=== PATIENT | female | born 1950 | race Caucasian/White ===

== ENCOUNTER → 2017-09-25 07:02 | Outpatient (CLI) | payer BC ==
[~2017-09-25] VITALS: Ht 157.5 cm; Wt 109.1 kg
--- NOTE | ~2017-09-25 | HEMODYNAMI ---
PATIENT:ASPPHIRE LARA MEDICAL RECORD: [id number] : 48 LOCATION:[facility] ADMISSION DATE: 09/25/17 Generatedon:09/25/20179:44 Patient name: SAPPHIRE LARA Patient #: [id number] SSN: : 1950 Date of study: 09/25/2017 Page: Of Hemodynamic Procedure Report Patient Data Patient Demographics Procedure consent was obtained First Name: SAPPHIRE Gender: Female Last Name: MARCO : 1950 [facility] Initial: J Age: 66 year(s) Patient #: [id number] Race: Unknown Additional ID: [id number] Contact details [address]: [address] [place] [address] State: [place] City: [place] Zip code: [address] Past Medical History Allergies Allergen Reaction Date Comments Reported Other allergy 09/25/2017 metoclopramide Admission Admission Data Admission Date: 09/25/2017 Admission Time: 7:02 Lab Results Lab Result Date: 09/25/2017 Lab Result Time: 7:15 Biochemistry Name Units Result Min Max BUN mg/dl 17 --(---*)-- 7 18 Creatinine mg/dl 0.9 --(-*--)-- 0.6 1.3 CBC Name Units Result Min Max Hematocrit % 42.2 --(*---)-- 42 54 Hemoglobin g/dl 14.2 --(*---)-- 13.5 17.5 Procedure Procedure Types Cath Procedure Diagnostic Procedure LHC LHC w/Coronaries Sedation Charges Moderate Sedation up to 45 minutes PCI Procedure Coronary Atherectomy Atherectomy w/Stent Coronary Initial Procedure Description Procedure Date Procedure Date: 09/25/2017 Procedure Start Time: 8:44 Procedure End Time: 9:43 Procedure Staff Name Function Marcell Watkins MD Performing Physician Tariq Cohen RN Nurse Mary Owens RT Scrub Edilberto Peterson RT Monitor Procedure Data Cath Procedure Fluoroscopy Diagnostic fluoroscopy Total fluoroscopy Time: time: 16.6 min 16.6 min Diagnostic fluoroscopy Total fluoroscopy dose: dose: 1577 mGy 1577 mGy Contrast Material Contrast Material Type Amount (ml) Isovue 300 239 Entry Location Entry Primary Successful Side Size Upsize Upsize Entry Closure Succes sful Closure Location (Fr) 1 (Fr) 2 (Fr) Remarks Device Remarks Femoral Right 5 Fr 6 Fr 7 Fr Exoseal artery Short Short Estimated blood loss: 10 ml Diagnostic catheters Device Type Used For End Catheter Placement MULTIPACK Pigtail 5 Fr Procedure catheter MULTIPACK JL 4.0 5Fr Procedure catheter MULTIPACK 3DRC 5Fr Procedure catheter Procedure Complications No complications Procedure Medications Medication Administration Route Dosage Oxygen NC 2 l/min Lidocaine 2% added to field 20 Heparin Flush Bag added to field 2 bags (1000units/500ml NS) 0.9% NaCl I.V. 100 ml/hr Fentanyl I.V. 50 mcg Versed I.V. 1 mg Fentanyl I.V. 50 mcg Versed I.V. 1 mg Fentanyl I.V. 50 mcg Fentanyl I.V. 50 mcg Heparin Bolus I.V. 5000 units Versed I.V. 1 mg Heparin Bolus I.V. 3000 units Versed I.V. 1 mg Fentanyl I.V. 50 mcg Fentanyl I.V. 50 mcg Versed I.V. 1 mg Versed I.V. 1 mg Hemodynamics Rest HGB: 14.2 (g/dl) Heart Rate: 64 (bpm) Snapshots Pre Cath Intra NCS Post Cath Vital Signs Time Heart Resp SPO2 etCO2 NIBP (mmHg) Rhythm Pain Sedation Rate (ipm) (%) (mmHg) Status Level (bpm) 8:20:42 91 17 99 0 143/75(81) NSR 0 (11) 10(A) , No pain 8:25:34 91 17 99 0 131/80(114) NSR 0 (11) 10(A) , No pain 8:33:19 89 17 98 0 131/91(109) NSR 0 (11) 10(A) , No pain 8:38:10 84 17 100 31.6 146/83(120) NSR 0 (11) 10(A) , No pain 8:43:01 84 18 99 24.1 126/83(103) NSR 0 (11) 10(A) , No pain 8:47:50 86 17 98 13.5 140/77(123) NSR 0 (11) 10(A) , No pain 8:52:43 86 17 99 15.8 126/82(108) NSR 0 (11) 10(A) , No pain 8:57:34 94 18 99 37.6 137/64(102) NSR 0 (11) 8(A) , No pain 9:02:29 84 16 100 22.6 115/69(92) NSR 0 (11) 9(A) , No pain 9:07:15 87 16 100 0 119/71(92) NSR 0 (11) 9(A) , No pain 9:12:02 89 16 100 31.6 136/83(111) NSR 0 (11) 9(A) , No pain 9:16:53 86 17 100 27.8 127/72(110) NSR 0 (11) 9(A) , No pain 9:21:42 84 16 100 34.6 139/89(109) NSR 0 (11) 9(A) , No pain 9:26:35 97 16 100 37.6 133/84(105) NSR 0 (11) 9(A) , No pain 9:31:21 84 17 100 36.1 110/67(99) NSR 0 (11) 9(A) , No pain 9:37:03 82 16 100 35.4 125/77(97) NSR 0 (11) 9(A) , No pain 9:40:02 81 17 99 36.1 108/74(88) NSR 0 (11) 9(A) , No pain Medications Time Medication Route Dose Verified Delivered Reason Notes Effectiveness by by 8:15:31 Oxygen NC 2 Marcell Faith used for l/min June Watkins MD procedure 8:15:38 Lidocaine 2% added 20ml Marcell Faith for local to vial June Watkins MD anesthetic field 8:15:44 Heparin Flush added 2 Marcell Faith used for Bag to bags June Watkins MD procedure (1000units/500ml field NS) 8:16:05 0.9% NaCl I.V. 100 Marcell Potter Per physician ml/hr June Cohen RN 8:42:09 Fentanyl I.V. 50 Marcell Potter for sedation mcg June Cohen RN 8:42:17 Versed I.V. 1 mg Marcell Tariq for sedation June Cohen RN 8:45:42 Fentanyl I.V. 50 Marcell Tariq for sedation [facility] June Cohen RN 8:45:45 Versed I.V. 1 mg Marcell Tariq for sedation June Cohen RN 8:48:31 Fentanyl I.V. 50 Marcell Tariq for sedation mcg June Cohen RN 8:52:10 Fentanyl I.V. 50 Marcell Tariq for sedation mcg June Cohen RN 8:52:24 Heparin Bolus I.V. 5000 Marcell Tariq for units June Cohen RN anticoagulation 8:59:05 Versed I.V. 1 mg Marcell Tariq for sedation June Cohen RN 9:06:15 Heparin Bolus I.V. 3000 Marcell Tariq for units June Cohen RN anticoagulation 9:12:10 Versed I.V. 1 mg Marcell Tariq for sedation June Cohen RN 9:12:15 Fentanyl I.V. 50 Marcell Tariq for sedation mcg June Cohen RN 9:18:47 Fentanyl I.V. 50 Marcell Tariq for sedation [facility] June Cohen RN 9:26:08 Versed I.V. 1 mg Marcell Tariq for sedation June Cohen RN 9:34:51 Versed I.V. 1 mg Marcell Tariq for sedation June Cohen quality review specialist Log Time Note 8:00:49 Mary Counts RT(R) sent for patient. Start room use. 8:03:50 Time tracking: Regular hours (M-F 7:00 - 5:00) 8:03:55 Plan of Care:Hemodynamics will remain stable., Cardiac rhythm will remain stable., Comfort level will be maintained., Respiratory function will remain adequate., Patient/ family verbilizes understanding of procedure., Procedure tolerated without complication., Recovers from procedure without complications.. 8:05:12 H&P Date Dictated: 09/25/2017 New H&P dictated by physician.. 8:07:15 Lab Result : BUN 17 mg/dl 8:07:15 Lab Result : Hemoglobin 14.2 g/dl 8:07:15 Lab Result : Creatinine 0.9 mg/dl 8:07:15 Lab Result : Hematocrit 42.2 % 8:07:18 Lab results completed and on chart. 8:08:45 Patient received from Pre/Post Procedure Room to CCL 1 Alert and oriented. Tansferred to table in Supine position. 8:08:46 Warm blankets applied, and vince hugger turned on for patient comfort. 8:08:47 Correct patient and procedure confirmed by team. 8:08:49 Signed procedure consent form obtained from patient. 8:08:50 ECG and BP/O2 sat monitors applied to patient. 8:08:51 Pre-procedure instructions explained to patient. 8:08:52 Pre-op teaching completed and patient verbalized understanding. 8:08:54 Family in waiting room. 8:08:56 Patient NPO since Midnight. 8:09:19 Patient allergic to Other allergymetoclopramide 8:13:47 Vital chart was started 8:15:13 Previous problem with sedation/anesthesia? No ? 8:15:14 Snore? Yes 8:15:15 Sleep apnea? No 8:15:17 Deviated septum? No 8:15:18 Opens mouth fully? Yes 8:15:19 Sticks out tongue? Yes 8:15:29 Airway obstruction? Yes POSSIBLE COPD 8:15:31 Oxygen 2 l/min NC was administered by Marcell Watkins MD; used for procedure; 8:15:38 Lidocaine 2% 20ml vial added to field was administered by Marcell Watkins MD; for local anesthetic; 8:15:44 Heparin Flush Bag (1000units/500ml NS) 2 bags added to field was administered by Marcell Watkins MD; used for procedure; 8:15:58 Dentures? Yes IN TIGHT 8:16:04 Patient diabetic? No. 8:16:05 0.9% NaCl 100 ml/hr I.V. was administered by Tariq Cohen RN; Per physician; 8:16:07 Patient not . Patient is over age 55. 8:16:11 Is patient on blood thinner?Yes 8:16:17 PRE LOADED 8:30:57 Pre procedure: right dorsailis pedis pulse 1+ Palpable, but thready & weak; easily obliterated 8:31:00 Pre procedure: left dorsailis pedis pulse 2+ Normal; easily identifiable; not easily obliterated 8:31:02 Patient pain scale 0/10 ?. 8:31:39 IV patent on arrival in right forearm with 0.9% NaCl at [facility]. 8:32:09 Bilateral groins area was prepped with chlora-prep and draped in sterile fashion 8:32:10 Alarms reviewed by R. N. 8:32:10 Sharps counted by scrub and verified by R.N. 8:32:12 Use device set Femoral Dx 8:32:13 ACIST Syringe (80256) opened to sterile field. 8:32:14 Bag Decanter (2002S) opened to sterile field. 8:32:14 Medline Cath Pack ([id number]) opened to sterile field. 8:32:21 ACIST Hand Control (95296) opened to sterile field. 8:32:21 ACIST Manifold (52912) opened to sterile field. 8:32:22 Tegaderm 4 x 4 (1626W) opened to sterile field. 8:32:24 SHEATH Prelude 5Fr 0.035 (TZS-1O-49-035) opened to sterile field. 8:32:26 DIAGNOSTIC WIRE .035 260cm J wire (984331) opened to sterile field. 8:32:27 DIAGNOSTIC Multipack 5Fr catheter set (UC1383) opened to sterile field. 8:32:54 Baseline sample Acquired. 8:33:00 Rhythm: sinus rhythm 8:33:01 Full Disclosure recording started 8:33:09 Physician paged 8:33:20 Zero performed for pressure channel P1 8:41:34 Physician arrived 8:41:34 --------ALL STOP TIME OUT------ 8:41:34 Final Timeout: patient, procedure, and site verified with staff and physician. All members of the team are in agreement. 8:41:38 Bilateral groins site verified by team. 8:41:51 Physical assessment completed. ASA score P 2 - A patient with mild systemic disease as per Marcell Watkins MD. 8:41:55 Sedation plan: IV Moderate Sedation Medication:Versed, Fentanyl 8:42:09 Fentanyl 50 mcg I.V. was administered by Tariq Cohen RN; for sedation; 8:42:17 Versed 1 mg I.V. was administered by Tariq Cohen RN; for sedation; 8:44:15 Procedure started. 8:44:18 Local anesthetic to right femoral artery with Lidocaine 2% by Marcell Watkins MD.INITIAL ACCESS ONLY 8:44:26 A 5 Fr sheath was inserted into the Right Femoral artery 8:44:39 A MULTIPACK Pigtail 5 Fr catheter was advanced over the wire and used for Procedure. 8:44:54 LV gram done using POON 8:44:57 Injector settings: Ml/sec: 10, Volume: 20, 8:45:33 EF : 50 % 8:45:42 Fentanyl 50 mcg I.V. was administered by Tariq Cohen RN; for sedation; 8:45:45 Versed 1 mg I.V. was administered by Tariq Cohen RN; for sedation; 8:45:52 Abdominal angiogram w/ runoff was performed. 8:46:06 Left leg runoff performed. 8:46:15 Right leg runoff performed. 8:46:21 Catheter exchanged over wire. 8:46:30 A MULTIPACK JL 4.0 5Fr catheter was advanced over the wire and used for Procedure. 8:47:25 LCA angiography performed. 8:48:08 Catheter exchanged over wire. 8:48:15 A MULTIPACK 3DRC 5Fr catheter was advanced over the wire and used for Procedure. 8:48:31 Fentanyl 50 mcg I.V. was administered by Tariq Cohen RN; for sedation; 8:48:52 RCA angiography performed. 8:49:03 SHEATH Prelude 6Fr 0.035 (ZTF-6M-03-035) opened to sterile field. 8:50:57 Catheter removed. 8:51:00 Sheath upsized to a 6 Fr Short. 8:51:13 CHOICE PT Extra Support 182cm wire ([id number]) opened to sterile field. 8:51:14 INFLATOR Merit BasixCompak (MH3063) opened to sterile field. 8:51:40 GUIDE 6FR HS II SH catheter ([id number]) opened to sterile field. 8:51:51 6 Fr HSII SH guide catheter was inserted over the wire 8:51:57 CHOICE PT ES wire advanced. 8:52:10 Fentanyl 50 mcg I.V. was administered by Tariq Cohen RN; for sedation; 8:52:24 Heparin Bolus 5000 units I.V. was administered by Tariq Cohen RN; for anticoagulation; 8:52:46 Wire advanced across lesion. 8:52:58 Inflate balloon Inflation number: 1 A EUPHORA 3.5 x 30 Balloon ([id number]) was prepped and advanced across the Prox RCA, then inflated to 17 FARIDA for 0:10 (min:sec). 8:53:14 Inflation number: 2 The EUPHORA 3.5 x 30 Balloon ([id number]) was reinflated across the Prox RCA, to 17 FARIDA for 0:10 (min:sec). 8:54:21 Balloon removed over the wire. 8:59:05 Versed 1 mg I.V. was administered by Tariq Cohen RN; for sedation; 8:59:47 Wire removed. 8:59:48 Guide catheter removed. 9:03:39 LASER ELCA 1.4 Rx atherectomy catheter (873463) opened to sterile field. 9:04:28 6 Fr HS II SH guide catheter was inserted over the wire 9:04:36 CHOICE PT wire advanced. 9:05:21 Wire advanced across lesion. 9:06:05 Laser pass to pRCA with Fluence of 60 and Rate of 25. 9:06:15 Heparin Bolus 3000 units I.V. was administered by Tariq Cohen RN; for anticoagulation; 9:09:57 5 Passes made with the laser to pRCA with Fluence of 60 and Rate of 25 9:10:27 Laser catheter removed. 9:10:30 Inflation number: 3 The EUPHORA 3.5 x 30 Balloon ([id number]) was reinflated across the Prox RCA, to 19 FARIDA for 0:10 (min:sec). 9:10:43 Balloon removed over the wire. 9:11:04 Laser readvanced over the wire. 9:11:41 Laser pass to pRCA with Fluence of 60 and Rate of 25. 9:11:51 Laser pass to pRCA with Fluence of 60 and Rate of 25. 9:12:00 Laser pass to pRCA with Fluence of 60 and Rate of 25. 9:12:10 Versed 1 mg I.V. was administered by Tariq Cohen RN; for sedation; 9:12:15 Fentanyl 50 mcg I.V. was administered by Tariq Cohen RN; for sedation; 9:12:20 Laser pass to mRCA with Fluence of 60 and Rate of 25. 9:12:55 Laser pass to mRCA with Fluence of 60 and Rate of 25. 9:13:44 Laser pass to mRCA with Fluence of 60 and Rate of 25. 9:14:11 Laser pass to mRCA with Fluence of 60 and Rate of 25. 9:15:04 Laser pass to mRCA with Fluence of 60 and Rate of 25. 9:15:09 Laser pass to pRCA with Fluence of 60 and Rate of 25. 9:15:22 Laser catheter removed. 9:18:21 Place stent Inflation Number: 4 A ALPINE Rx 3.5 x 38 stent ([id number]) was prepped and advanced across the Prox RCA. The stent was deployed at 21 FARIDA for 0:10 (min:sec). 9:18:47 Fentanyl 50 mcg I.V. was administered by Tariq Cohen RN; for sedation; 9:20:38 Stent catheter was removed intact over wire. 9:20:39 Inflation number: 5 The EUPHORA 3.5 x 30 Balloon ([id number]) was reinflated across the Prox RCA, to 21 FARIDA for 0:10 (min:sec). 9:21:06 Balloon removed over the wire. 9:23:14 CHOICE PT Extra Support 182cm wire ([id number]) opened to sterile field. 9:23:23 choice pt es wire advanced as a naina wire. 9:24:20 Wire removed. 9:24:21 Wire removed. 9:24:33 SHEATH 7FR [place] (ZCM012) opened to sterile field. 9:24:41 GUIDE 7FR HS II SH catheter ([id number]) opened to sterile field. 9:24:50 Guide catheter removed. 9:25:13 Sheath upsized to a 7 Fr Short. 9:26:08 Versed 1 mg I.V. was administered by Tariq Cohen RN; for sedation; 9:26:35 7 Fr HS II SH guide catheter was inserted over the wire 9:28:01 CHOICE PT ES wire advanced. 9:28:16 Wire advanced across lesion. 9:29:47 Inflate balloon Inflation number: 1 A EUPHORA 4.0 x 20 Balloon ([id number]) was prepped and advanced across the Mid RCA, then inflated to 15 FARIDA for 0:10 (min:sec). 9:30:04 Inflation number: 6 The EUPHORA 4.0 x 20 Balloon ([id number]) was reinflated across the Prox RCA, to 15 FARIDA for 0:10 (min:sec). 9:30:12 Inflation number: 7 The EUPHORA 4.0 x 20 Balloon ([id number]) was reinflated across the Prox RCA, to 15 FARIDA for 0:10 (min:sec). 9:30:20 Balloon removed over the wire. 9:32:01 The ALPINE Rx 3.5 x 18 stent ([id number]) was advanced then removed because of failure to cross lesion 9:33:20 Place stent Inflation Number: 2 A DU RX 3.5 x 15 stent ([id number]) was prepped and advanced across the Mid RCA. The stent was deployed at 21 FARIDA for 0:10 (min:sec). 9:34:04 Stent catheter was removed intact over wire. 9:34:05 Wire removed. 9:34:06 Guide catheter removed. 9:34:14 EXOSEAL 7Fr (EX700) opened to sterile field. 9:34:50 Sheath removed intact; hemostasis achieved with Exoseal to the Right Femoral artery. 9:34:51 Versed 1 mg I.V. was administered by Tariq Cohen RN; for sedation; 9:34:51 Procedure ended.(Physican Out) 9:37:12 Fluoroscopy time 16.60 minutes. 9:37:25 Laser total treatment time: 1 minutes 30 seconds 9:37:29 Laser total pulses delivered: 2250 9:37:41 Flurop Dose total: 1577 9:37:41 Fluoroscopy dose: 1577 mGy 9:37:47 Contrast amount:Isovue 300 239ml. 9:37:48 Sharps counted by scrub and verified by R.N. 9:37:49 Insertion/operative site no bleeding no hematoma. 9:37:51 Post-op/insertion site Right Femoral artery dressed using a 4 x 4 and Tegaderm. 9:37:54 Post right femoral artery:stable, soft, clean and dry 9:37:56 Post Procedure Pulses reassessed and unchanged 9:37:58 Post-procedure physical assessment completed. ASA score P 2 - A patient with mild systemic disease as per Marcell Watkins MD. 9:38:01 Post procedure rhythm: unchanged. 9:38:03 Estimated blood loss: 10 ml 9:38:06 Post procedure instruction explained to patient.Patient verbalizes understanding. 9:38:07 Patient needs reinforcement of post procedure teaching. 9:39:11 Procedure type changed to Cath procedure, Diagnostic procedure, LHC, LHC w/Coronaries, Sedation Charges, Moderate Sedation up to 45 minutes, PCI procedure, Coronary Atherectomy, Atherectomy w/Stent Coronary Initial 9:43:44 Procedure and supply charges have been captured, reviewed, submitted and are correct. 9:43:47 Procedure Complication : No complications 9:43:49 Vital chart was stopped 9:43:49 See physician's report for complete and final results. 9:43:51 Report given to Pre/Post Procedure Room. 9:43:53 Patient transfered to Pre/Post Procedure Room with Stretcher. 9:43:55 Procedure ended. 9:43:55 Full Disclosure recording stopped 9:44:02 End room use (Document Last) Intervention Summary Intervention Notes Time ActionType Lesion and Equipment Used Action# Pressure Duration Attributes 8:52:58 Inflate Prox RCA EUPHORA 3.5 x 1 17 00:10 balloon 30 Balloon ([id number]) 8:53:14 Reinflate Prox RCA EUPHORA 3.5 x 2 17 00:10 balloon 30 Balloon ([id number]) 9:10:30 Reinflate Prox RCA EUPHORA 3.5 x 3 19 00:10 balloon 30 Balloon (MJA9590S) 9:18:21 Place stent Prox RCA ALPINE Rx 3.5 4 21 00:10 x 38 stent ([id number]) 9:20:39 Reinflate Prox RCA EUPHORA 3.5 x 5 21 00:10 balloon 30 Balloon (AMH5171R) 9:29:47 Inflate Mid RCA EUPHORA 4.0 x 1 15 00:10 balloon 20 Balloon (UVK5149Q) 9:30:04 Reinflate Prox RCA EUPHORA 4.0 x 6 15 00:10 balloon 20 Balloon (QKL3790I) 9:30:12 Reinflate Prox RCA EUPHORA 4.0 x 7 15 00:10 balloon 20 Balloon (TMT3501Q) 9:32:01 Discard ALPINE Rx 3.5 Stent x 18 stent ([id number]) 9:33:20 Place stent Mid RCA DU RX 3.5 x 2 21 00:10 15 stent ([id number]) Device Usage Item Name Manufacture Quantity Catalog Number Hospital Part Current Minimal Lot# / Charge Number Stock Stock Serial# Code ACIST Syringe Acist 1 76452 098288 871189 161531 20 (23544) Medical Systems Inc Bag Decanter Microtek 1 902501 82210 102627 5 () Medical Inc. Medline Cath Cardinal 1 [id number] 512090 96181 446086 5 Pack Health ([id number]) ACIST Hand Acist 1 15915 972581 609855 168444 5 Control (05761) Medical Systems Inc ACIST Manifold Acist 1 94475 986027 310914 035136 5 (60566) Medical Systems Inc Tegaderm 4 x 4 3M 1 1626W 008418 681901 040111 5 (1626W) SHEATH Prelude Merit 1 TNJ-2G-08-035 024887 739809 099434 5 5Fr 0.035 Medical (GQJ-5H-43-035) DIAGNOSTIC WIRE St Jesse 1 356107 675346 275340 253503 30 .035 260cm J wire (764712) DIAGNOSTIC Cardinal 1 QP4251 925910 98766 303453 30 Multipack 5Fr Health catheter set (CD7839) MULTIPACK Cardinal 1 523703 5 Pigtail 5 Fr Health catheter MULTIPACK JL Cardinal 1 074546 5 4.0 5Fr Health catheter MULTIPACK 3DRC Cardinal 1 603697 5 5Fr catheter Health CHOICE PT Extra [place] 2 [id number] 267624 507218 772963 5 Support 182cm Scientific wire ([id number]) INFLATOR Merit Merit 1 NA4937 265450 964350 324282 15 Mixwit Medical (GI2628) EUPHORA 3.5 x Medtronic 1 QZZ8785H 283953 340545 845511 5 [id number] 30 Balloon ([id number]) LASER ELCA 1.4 Leticia 1 114-009 868744 012996 554798 5 Rx atherectomy Healthcare catheter (493750) (308971) ALPINE Rx 3.5 x Jolly 1 0370697-92 769646 496978 466543 5 0837687 38 stent Vascular ([id number]) SHEATH 7FR Terumo 1 TNO571 617541 976552 937976 5 [place] (IGK341) GUIDE 7FR HS II Medtronic 1 [id number] 607010 005350 820805 0 SH catheter ([id number]) SHEATH Prelude Merit 1 KED-4T-29-35 790552 7068262 365090 5 6Fr 0.035 Medical (QUD-9S-19-035) EUPHORA 4.0 x Medtronic 1 [id number] 716685 829399 615104 5 [id number] 20 Balloon (ZKA5392J) ALPINE Rx 3.5 x Jolly 1 2466184-52 707710 709900 218603 5 2428915 18 stent Vascular ([id number]) DU RX 3.5 x Medtronic 1 [id number] 932155 9680746 110320 5 [id number] 15 stent ([id number]) GUIDE 6FR HS II Medtronic 1 [id number] 569058 14476 228913 1 catheter ([id number]) EXOSEAL 7Fr Cardinal 1 EX700 037942 617717 495541 5 (EX700) Health Signature Audit [place] Stage Time Signature Unsigned Intra-Procedure 09/25/2017 Edilberto Peterson 9:44:46 AM RT(R) Signatures Monitor : Edilberto Peterson RT Signature : Date : Time : [place] [id number] [facility] [place] [address]
--- NOTE | ~2017-09-25 | OP ---
PATIENT NAME: SAPPHIRE LARA MEDICAL RECORD: [id number] :48 LOCATION:D.CAT ADMISSION DATE: SURGEON: ANYI MALAVE MD DATE OF OPERATION: 09/25/2017 PROCEDURES: 1. PTCA stent RCA. 2. Laser atherectomy RCA. 3. Left heart catheterization. 4. Selective coronary angiography. 5. Left ventriculogram. INDICATION: Angina and coronary artery disease. PROCEDURE IN DETAIL: After informed consent was obtained and after a detailed description of risks, benefits as well as alternative therapies, the patient elected to proceed with angiogram and angioplasty. The right femoral area was prepped and draped in normal sterile fashion. Right femoral artery was cannulated via modified Seldinger technique with placement of 7-Setswana sheath. All catheters exchanged through this sheath. FINDINGS: The left ventriculogram was performed in standard 30-degree POON view, reveals good cardiac wall motion throughout all segments. Overall ejection fraction estimated 60%. SELECTIVE CORONARY ANGIOGRAPHY: 1. Left main is with no significant angiographic disease. 2. Left anterior descending has moderate irregularities, but no flow-limiting stenosis. 3. The circumflex has moderate irregularities, but no flow-limiting stenosis. 4. The right coronary artery has previously placed stents with 3 areas of greater than 90% in-stent restenosis. LASER ATHERECTOMY OF THE RIGHT CORONARY ARTERY: We performed laser atherectomy with a 1.4 mm catheter, multiple passes were made. We stented this with a 3.5 x 38 mm Jolly Alpine stent and a 3.5 x 15 mm Hosea stent. Result was 0% residual. IMPRESSION: Successful percutaneous transluminal coronary angioplasty stent of the right coronary artery going from multiple areas of 90% in-stent restenosis to 0% residual. TRANSINT:[id number] Voice Confirmation ID: [id number] DOCUMENT ID: [id number] ANYI MALAVE MD at 1403 CC: [id number] DICTATION DATE: 09/25/17 0942 MAINTENANCE PLANNER: 09/25/17 1204 DEP CLI 09/25/17 [place] [id number] [place] [address]
--- NOTE | ~2017-09-25 | HP ---
PATIENT: SAPPHIRE LARA MEDICAL RECORD: [id number] ACCOUNT: [id number] LOCATION:[facility] : 48 ADMISSION DATE: 09/25/17 HISTORY AND PHYSICAL EXAMINATION ADMITTING DIAGNOSES: 1. Unstable angina. 2. Coronary artery disease. 3. Previous PTCA stent RCA. 4. Hypertension. 5. Hyperlipidemia. HISTORY OF PRESENT ILLNESS: Ms. Lara presents with unstable anginal symptomatology in a worsening fashion. She does have a history of PTCA stent of the RCA approximately one year ago. REVIEW OF SYSTEMS: The patient reports easy bruising but reports no swollen glands. The patient reports no fever, no night sweats, no significant weight gain, no significant weight loss. No significant exercise tolerance. The patient reports no dry eyes, no irritation, no vision change. Patient reports no difficulty hearing and no ear pain. Patient reports no frequent nose bleeds or nose and sinus problems. Patient reports on arm pain on exertion. No shortness of breath while lying down. No history of heart murmur. Patient reports no cough, no wheezing or coughing up blood. Patient reports no abdominal pain, no vomiting. Normal appetite. No diarrhea and not vomiting blood. No nausea and no constipation. Patient reports no incontinence. No difficulty urinating. No hematuria. No increased frequency. Patient reports no muscle aches. No weakness, no arthralgias, no back pain. No swelling of the extremities. Patient reports no abnormal mole, no jaundice, no rashes. Reports no loss of consciousness. No weakness and no numbness. No seizures, dizziness, or headaches. The patient reports no depression, no sleep disturbance, feeling safe in a relationship and no alcohol abuse. Patient reports on fatigue. Reports no runny nose or sinus pressure. No itching, no hives, and no frequent sneezing. PHYSICAL EXAMINATION: GENERAL APPEARANCE: Well-nourished, well-developed, appears stated age. Level of distress, comfortable. PSYCHIATRIC: Mental status, alert, normal affect. Orientation, oriented to time, place and person. EYES: Lids and conjunctiva, noninjected. No discharge, no pallor. ENT: Lips, teeth, gums, normal dentition. Oropharynx, no cyanosis, no pallor. NECK: Carotid arteries, bilateral normal upstroke, no bruits, no thrills. JUGULAR VEINS: No jugular venous pressure or distention. CERVICAL LYMPH NODES: Nontender, nonenlarged. THYROID: Not enlarged. Nontender. No nodules. LUNGS: Respiratory effort, unlabored. CHEST: Normal curvature. No thoracic deformity. No chest wall tenderness. Percussion, resonant. Auscultation, clear. No wheezes, no rales, no rhonchi. CARDIOVASCULAR: Precordial exam, nondisplaced. No heaves or pericardial thrills. Rate and rhythm, regular. Heart sounds, normal S1, normal S2. No S3, no gallop, no rub. Systolic murmur, not heard. Diastolic murmur, not heard. EXTREMITIES: No cyanosis, no edema. Peripheral pulses, full and equal in all extremities, except as noted. No bruits appreciated. HISTORY AND PHYSICAL [id number] SAPPHIRE LARA ABDOMEN: Soft, nondistended. Normal aorta. No bruit. Nontender. No masses. Liver, nontender, no hepatomegaly. Spleen, nontender, no splenomegaly. MUSCULOSKELETAL: No joint tenderness. No joint swelling. No erythema. NEUROLOGICAL: Normal gait, normal strength, normal tone. SKIN: Warm and dry. OVERALL IMPRESSION: Unstable anginal symptomatology. We will proceed with coronary angiography. Further care per the findings of the angiography. TRANSINT:[id number] Voice Confirmation ID: [id number] DOCUMENT ID: [id number] ANYI MALAVE MD at 1403 CC: [id number] DICTATION DATE: 09/25/1740 ANIMAL CRUELTY INVESTIGATOR: 09/25/17 1123 [facility] CLI 09/25/17 [place] [id number] [place] [id number]
[~2017-09-25 07:02] MED LIST: BAYER CHEWABLE81 MG PO; BYSTOLIC5 MG PO; CELEXA20 MG PO; ELIQUIS2.5 MG PO; HYDROCODONE-APA1 TAB PO; LASIX40 MG PO; MIRAPEX0.5 MG PO; PERCOCET 10/3251 TA1 PO; PLAVIX75 MG PO; ULTRAM50 MG PO
[2017-09-25 07:04] VITALS: BP 152/73; Ht 157.5 cm; Wt 109.1 kg
[2017-09-25 07:23] LABS: BASOPHILS 0.5 % (0-2); EOSINOPHILS 6.7 % (0-7); HEMATOCRIT 42.2 % (36.0-48.0); HEMOGLOBIN 14.2 g/dL (12-16); IMMATURE GRANULOCYTES 0.5 % (0-5); LYMPHOCYTES 19.5 % (15-50); MCH 30.7 pg (26.0-34.0); MCHC 33.6 g/dL (31.0-37.0); MCV 91.1 fL (80.0-100.0); MEAN PLATELET VOLUME 9.5 fL (7.4-10.4); MONOCYTES 7.5 % (2-11); NEUTROPHILS 65.3 % (40-80); PLATELET COUNT 252 10x3/uL (130-400); RBC 4.63 10x6/uL (4.00-5.40); RDW 13.2 % (11.5-14.5); WBC 8.4 10x3/uL (4.8-10.8)
[2017-09-25 07:35] LABS: ANION GAP 12.8 mmol/L (8-16); CALCIUM 9.3 mg/dL (8.5-10.1); CARBON DIOXIDE 27.9 mmol/L (21.0-32.0); CREATININE - SERUM 0.9 mg/dL (0.6-1.3); POTASSIUM - SERUM 3.7 mmol/L (3.5-5.1)
== END | disposition home or self-care (01) ==
LOC: D.CATH 07:02
PROVIDERS: Internal Medicine Interventional Cardiology
DX: I25.110 Atherosclerotic heart disease of native coronary artery with unstable angina pectoris (principal); T82.855A Stenosis of coronary artery stent, initial encounter; I10 Essential (primary) hypertension; E78.5 Hyperlipidemia, unspecified; Z01.812 Encounter for preprocedural laboratory examination

== ENCOUNTER 2017-10-06 16:44 | Inpatient (IN) | payer BC, MEDICARE ==
[~2017-10-06] VITALS: Ht 157.5 cm; Wt 108.9 kg
--- NOTE | ~2017-10-06 | OP ---
PATIENT NAME: SAPPHIRE LARA MEDICAL RECORD: [id number] :48 LOCATION:D[id number] ADMISSION DATE:10/06/17 SURGEON: KYLE ROWE MD DATE OF OPERATION: 10/07/2017 PREOPERATIVE DIAGNOSIS: Comminuted intra-articular fracture of the left distal radius. POSTOPERATIVE DIAGNOSIS: Comminuted intraarticular fracture of the left distal radius. PROCEDURE: 1. Application of birail external fixation. 2. ORIF of right distal radius fracture. SURGEON: Kyle Rowe MD ANESTHESIA: General. INTRAOPERATIVE COMPLICATIONS: None. SUMMARY OF PATHOLOGIC FINDINGS: The patient had a split T-type fracture of the distal articular surface that required a combination of external fixation as well as internal fixation. INDICATIONS: Ms. Lara is a 66-year-old female who fell at work, sustaining fracture to her left wrist. She recently had stents put in and is in fact only 2 weeks away from that. She is currently on Plavix and aspirin and as these are drug-eluting stents, we have decided to proceed with his minimal invasion as possible. OPERATIVE SUMMARY IN DETAIL: After obtaining the appropriate preoperative orthopedic surgery consent as well as anesthetic consultation, evaluation and clearance, the patient was brought to the operating room and placed on the operating table in supine position. After general laryngeal mask was administered, a tourniquet placed on the proximal aspect of the left upper extremity. Left upper extremity was then prepped and draped in routine sterile fashion. The arm was elevated and to 250 mmHg. Under fluoroscopic guidance, reduction maneuver was performed and did feel like these would all pull back together with the application of external fixation and internal compression screws as well as for the K-wires. First the apex pins were put in the distal radius approximately with two-third junction. Care was taken to avoid the superficial branch of radial nerve. This was then followed by placement of apex pins in the second metacarpal, one in the base and one just distal to that. External fixator was directed, applied, and the fracture was held in the appropriate position on AP and lateral planes while the external fixator was tightened. Next given the sagittal type split, a guidewire for 4.0 cannulated screw was placed across the sagittal split on fluoroscopy. After appropriate measurements were taken, the 24 mm compression screw was placed subcortically on both sides with good compression across the T-type. Having completed this, 2 K-wires were placed from the radial styloid across to the ulnar cortex for enhanced stability and lastly, a screw from dorsal to volar was placed to further compression the T-type fracture. All was done under fluoroscopic guidance and this resulted in anatomic realignment of the distal radial articular surface with a neutral volar tilt as well as correction of the short OPERATIVE REPORT [id number] LARASAPPHIRE J and radial height and angle of inclination. Having completed this, the wounds were copiously irrigated and incision sites for the external fixator were closed with 4-0 Prolene in interrupted fashion. Sterile dressings were applied. Final radiographs were taken and submitted for radiologist review. Tourniquet was deflated. The patient was awakened and taken to the recovery room in stable condition. All final needle and sponge counts were correct. TRANSINT:[id number] Voice Confirmation ID: [id number] DOCUMENT ID: [id number] SOLEDAD RICE, KYLE VELÁSQUEZ at 1123 CC: [id number] DICTATION DATE: 10/07/17 1230 OPERATIONS ADMINISTRATIVE ASSISTANT: 10/07/17 1336 [facility] IN 10/07/17 [facility] [address] [place] [address]
[~2017-10-06 16:44] MED LIST changes: -BYSTOLIC5 MG PO; -HYDROCODONE-APA1 TAB PO
[2017-10-06 18:46] LABS: BASOPHILS 0.4 % (0-2); EOSINOPHILS 4.3 % (0-7); HEMATOCRIT 43.1 % (36.0-48.0); HEMOGLOBIN 14.6 g/dL (12-16); IMMATURE GRANULOCYTES 0.6 % (0-5); LYMPHOCYTES 13.8 % (15-50); MCH 30.2 pg (26.0-34.0); MCHC 33.9 g/dL (31.0-37.0); MCV 89.2 fL (80.0-100.0); MEAN PLATELET VOLUME 9.7 fL (7.4-10.4); MONOCYTES 6.3 % (2-11); NEUTROPHILS 74.6 % (40-80); PLATELET COUNT 285 10x3/uL (130-400); RBC 4.83 10x6/uL (4.00-5.40); RDW 13.4 % (11.5-14.5); WBC 12.6 10x3/uL (4.8-10.8)
[2017-10-06 19:52] LABS: ALBUMIN 3.4 g/dL (3.4-5.0); ANION GAP 15.8 mmol/L (8-16); BILIRUBIN - TOTAL 1.03 mg/dL (0.2-1.3); CALCIUM 9.2 mg/dL (8.5-10.1); CARBON DIOXIDE 23.2 mmol/L (21.0-32.0); CREATININE - SERUM 0.9 mg/dL (0.6-1.3); PROTEIN - SERUM 8.4 g/dL (6.4-8.2)
[2017-10-06 23:06] VITALS: BP 148/62; Ht 157.5 cm; Wt 108.9 kg
[2017-10-06 23:23] LABS: APPEARANCE CLOUDY (CLEAR); BILIRUBIN NEGATIVE (NEGATIVE); COLOR DK YELLOW (YELLOW); GLUCOSE NEGATIVE (NEGATIVE); KETONE SMALL mg/dL (NEGATIVE); NITRITE NEGATIVE (NEGATIVE); PROTEIN NEGATIVE (NEGATIVE); SPECIFIC GRAVITY 1.025 (1.005-1.020); UROBILINOGEN NORMAL (NORMAL)
[2017-10-06 23:30] LABS: UDS - AMPHET NEGATIVE QUAL (NEGATIVE); UDS - BARB NEGATIVE QUAL (NEGATIVE); UDS - BENZO NEGATIVE QUAL (NEGATIVE); UDS - COCAINE NEGATIVE QUAL (NEGATIVE); UDS - OPIATE POSITIVE QUAL (NEGATIVE); UDS - PCP NEGATIVE QUAL (NEGATIVE); UDS - THC NEGATIVE QUAL (NEGATIVE)
[2017-10-07] VITALS: BP 157/77
[2017-10-07 04:00] VITALS: BP 174/88
[2017-10-07 07:25] LABS: ALBUMIN 3.2 g/dL (3.4-5.0); ANION GAP 13.4 mmol/L (8-16); BILIRUBIN - TOTAL 1.5 mg/dL (0.2-1.3); CARBON DIOXIDE 27.6 mmol/L (21.0-32.0); CREATININE - SERUM 0.9 mg/dL (0.6-1.3); PROTEIN - SERUM 7.9 g/dL (6.4-8.2)
[2017-10-07 07:27] LABS: BASOPHILS 0.3 % (0-2); EOSINOPHILS 1.1 % (0-7); HEMATOCRIT 41.7 % (36.0-48.0); HEMOGLOBIN 13.9 g/dL (12-16); IMMATURE GRANULOCYTES 0.4 % (0-5); LYMPHOCYTES 16.3 % (15-50); MCH 30.1 pg (26.0-34.0); MCHC 33.3 g/dL (31.0-37.0); MCV 90.3 fL (80.0-100.0); MEAN PLATELET VOLUME 9.6 fL (7.4-10.4); MONOCYTES 5.4 % (2-11); NEUTROPHILS 76.5 % (40-80); PLATELET COUNT 236 10x3/uL (130-400); RBC 4.62 10x6/uL (4.00-5.40); RDW 13.4 % (11.5-14.5)
[2017-10-07 07:31] LABS: WBC 9.1 10x3/uL (4.8-10.8)
[2017-10-07 08:45] VITALS: BP 168/93
[2017-10-07 13:54] VITALS: BP 144/70
[2017-11-03] MEDS ORDERED: BYSTOLIC5 MG PO (08:11)
[2017-11-03] MEDS ORDERED: HYDROCODONE-APA1 TAB PO (08:12)
== END 2017-10-07 18:05 | disposition home or self-care (01) | DRG 512 ==
LOC: D.ER 16:44 → D.MS 20:41 → D.EDHOLD 20:41 → D.MS 20:55
PROVIDERS: Family Medicine; Orthopaedic Surgery
PROC: 0PSJ04Z Reposition Left Radius with Internal Fixation Device, Open Approach (ICD-10-PCS; principal; 2017-10-07 11:00)
PROC: 0PHJ05Z Insertion of External Fixation Device into Left Radius, Open Approach (ICD-10-PCS; 2017-10-07 11:00)
DX: S52.572A Other intraarticular fracture of lower end of left radius, initial encounter for closed fracture (principal); S52.255A Nondisplaced comminuted fracture of shaft of ulna, left arm, initial encounter for closed fracture; W17.89XA Other fall from one level to another, initial encounter

== ENCOUNTER 2017-11-06 05:07 | Day surgery (SDC) | payer OTHER ==
[2017-11-03 08:52] LABS: HEMATOCRIT 38.6 % (36.0-48.0); HEMOGLOBIN 12.8 g/dL (12-16); MCH 30.2 pg (26.0-34.0); MCHC 33.2 g/dL (31.0-37.0); MEAN PLATELET VOLUME 9.1 fL (7.4-10.4); RBC 4.24 10x6/uL (4.00-5.40); RDW 13.4 % (11.5-14.5); WBC 9.2 10x3/uL (4.8-10.8)
[2017-11-03 09:03] LABS: ANION GAP 13.1 mmol/L (8-16); CALCIUM 9.2 mg/dL (8.5-10.1); CARBON DIOXIDE 26.3 mmol/L (21.0-32.0); CREATININE - SERUM 1.1 mg/dL (0.6-1.3); POTASSIUM - SERUM 4.4 mmol/L (3.5-5.1)
[~2017-11-06] VITALS: Ht 157.5 cm; Wt 106.6 kg
--- NOTE | ~2017-11-06 | OP ---
PATIENT NAME: SAPPHIRE LARA MEDICAL RECORD: [id number] :48 LOCATION:D[facility] ADMISSION DATE: SURGEON: KYLE ROWE MD DATE OF OPERATION: 11/06/2017 PREOPERATIVE DIAGNOSIS: Retained external fixator and percutaneous pins. POSTOPERATIVE DIAGNOSIS: Retained external fixator and percutaneous pins. PROCEDURES: 1. Removal of birail external fixator. 2. Removal of percutaneous pins. SURGEON: Kyle Rowe MD ANESTHESIA: General. INTRAOPERATIVE COMPLICATIONS: None. SUMMARY OF PATHOLOGIC FINDINGS: Essentially none. OPERATIVE SUMMARY IN DETAIL: After obtaining the appropriate orthopedic surgery consent as well as anesthetic consultation, evaluation, and clearance and the patient was placed on the operating table in supine position. After adequate general laryngeal mask airway anesthesia was administered, the patient's left upper extremity was prepped and draped in routine sterile fashion. The external fixator was serially and sequentially removed with crossbars of the external fixator removed, followed by removal of the pin and clamp device, this followed by removal of the apex pins. All remaining sutures were removed. Two K-wires were also removed. The area was treated local with a deep cleansing followed by an antibiotic ointment, sterile dressings were applied. A volar splint was applied. At this point, the cement was allowed to harden. The patient was awakened and taken to recovery room in stable condition. TRANSINT:[id number] Voice Confirmation ID: [id number] DOCUMENT ID: [id number] KYLE ROWE MD at 1549 CC: [id number] DICTATION DATE: 11/06/17820 BEHAVIORAL HEALTH ASSISTANT: 11/06/17 0913 [facility] 11/06/17 [place] [id number] [place] [address]
[~2017-11-06 05:07] MED LIST changes: +BYSTOLIC5 MG PO; +HYDROCODONE-APA1 TAB PO
[2017-11-06 06:22] VITALS: BP 119/50; Ht 157.5 cm; Wt 106.6 kg
[2017-11-06] MEDS ORDERED: HYDROCODONE-APA1 TAB PO (08:26)
== END 2017-11-06 09:55 | disposition home or self-care (01) ==
LOC: D.OPS 05:07 → D.PAN 14:00 → D.OPS 14:00
PROVIDERS: Anesthesiology
DX: Z46.89 Encounter for fitting and adjustment of other specified devices (principal); S52.502D Unspecified fracture of the lower end of left radius, subsequent encounter for closed fracture with routine healing; X58.XXXD Exposure to other specified factors, subsequent encounter; Z01.812 Encounter for preprocedural laboratory examination

== ENCOUNTER → 2018-04-30 07:19 | Outpatient (CLI) | payer BC ==
[2017-11-06 06:22] VITALS: BMI 43.1
== END | disposition home or self-care (01) ==
LOC: D.CT 07:19
DX: M62.89 Other specified disorders of muscle (principal)

== ENCOUNTER → 2018-05-16 06:57 | Outpatient (CLI) | payer BC ==
[~2018-05-16] VITALS: Ht 157.5 cm; Wt 113.6 kg
--- NOTE | ~2018-05-16 | HEMODYNAMI ---
PATIENT:SAPPHIRE LARA MEDICAL RECORD: [id number] : 48 LOCATION:[facility] ADMISSION DATE: 05/16/18 Generatedon:05/16/201810:16 Patient name: SAPPHIRE LARA Patient #: [id number] SSN: : 1950 Date of study: 05/16/2018 Page: Of Hemodynamic Procedure Report Patient Data Patient Demographics Procedure consent was obtained First Name: SAPPHIRE Gender: Female Last Name: MARCO : 1950 [facility] Initial: Jazmyn Age: 67 year(s) Patient #: [id number] Race: Unknown Additional ID: [id number] Contact details [address]: [address] [place] [address] State: [place] City: [place] Zip code: [address] Past Medical History Allergies Allergen Reaction Date Comments Reported Other allergy 09/25/2017 metoclopramide Other allergy 05/16/2018 REGLAN Admission Admission Data Admission Date: 05/16/2018 Admission Time: 6:57 Height (in.): 62 BSA: 2.1 (m2) Height (cm.): 157.48 BMI: 45.73 (kg/m2) Weight (lbs.): 250 Weight (kg.): 113.4 Lab Results Lab Result Date: 05/16/2018 Lab Result Time: 0:00 Biochemistry Name Units Result Min Max BUN mg/dl 18 --(---*)-- 7 18 Creatinine mg/dl 1 --(--*-)-- 0.6 1.3 CBC Name Units Result Min Max Hemoglobin g/dl 13.7 --(*---)-- 13.5 17.5 Procedure Procedure Types Cath Procedure Diagnostic Procedure C [facility] w/Coronaries PCI Procedure Coronary Stent Coronary Stent Initial Procedure Description Procedure Date Procedure Date: 05/16/2018 Procedure Start Time: 9:57 Procedure Staff Name Function Marcell Watkins MD Performing Physician Staci Stack RT Monitor Alan Tovar RT Scrub Rupa Lynn RN Nurse Procedure Data Cath Procedure Fluoroscopy Diagnostic fluoroscopy Total fluoroscopy Time: 3.8 time: 3.8 min min Diagnostic fluoroscopy Total fluoroscopy dose: 753 dose: 753 mGy mGy Contrast Material Contrast Material Type Amount (ml) Isovue 300 115 Entry Location Entry Primary Successful Side Size Upsize Upsize Entry Closure Succes sful Closure Location (Fr) 1 (Fr) 2 (Fr) Remarks Device Remarks Femoral Right 5 Fr 6 Fr Exoseal artery Short Estimated blood loss: 10 ml Diagnostic catheters Device Type Used For End Catheter Placement MULTIPACK JL 4.0 5Fr Procedure catheter MULTIPACK Pigtail 5 Fr Procedure catheter MULTIPACK 3DRC 5Fr Procedure catheter Procedure Complications No complications Procedure Medications Medication Administration Route Dosage 0.9% NaCl I.V. 100 ml/hr Oxygen etCO2 Nasal cannula 2 l/min Lidocaine 2% added to field 20 Heparin Flush Bag added to field 2 bags (1000units/500ml NS) Versed I.V. 2 mg Fentanyl I.V. 50 mcg Versed I.V. 2 mg Fentanyl I.V. 50 mcg Versed I.V. 2 mg Fentanyl I.V. 50 mcg Versed I.V. 1 mg Fentanyl I.V. 25 mcg Heparin Bolus I.V. 4000 units Hemodynamics Rest BSA: 2.1 (m2) HGB: 13.7 (g/dl) O2 Consumption: Estimated: 212.54 (ml/min) O2 Con sumption indexed: Estimated:101.21 (ml/min/m) Heart Rate: 93 (bpm) Snapshots Pre Cath Intra NCS Post Cath Vital Signs Time Heart Resp SPO2 etCO2 NIBP (mmHg) Rhythm Pain Sedation Rate (ipm) (%) (mmHg) Status Level (bpm) 9:04:28 95 13 99 30.6 183/54(128) NSR 0 (11) 10(A) , No pain 9:09:13 90 21 98 34.4 177/71(126) NSR 0 (11) 10(A) , No pain 9:13:55 87 18 97 34.4 149/67(105) NSR 0 (11) 10(A) , No pain 9:18:36 87 18 97 35.2 162/66(92) NSR 0 (11) 10(A) , No pain 9:23:14 84 16 97 33.7 122/60(88) NSR 0 (11) 10(A) , No pain 9:27:47 90 17 97 35.2 133/56(87) NSR 0 (11) 10(A) , No pain 9:32:19 91 17 96 35.9 148/68(104) NSR 0 (11) 10(A) , No pain 9:37:00 85 16 96 29 131/63(105) NSR 0 (11) 10(A) , No pain 9:41:32 84 16 96 36 148/64(97) NSR 0 (11) 10(A) , No pain 9:46:13 87 17 96 35.2 144/66(92) NSR 0 (11) 10(A) , No pain 9:50:51 85 19 96 35.9 151/67(99) NSR 0 (11) 10(A) , No pain 9:55:30 83 16 96 30.7 137/58(89) NSR 0 (11) 10(A) , No pain 10:00:02 90 10 96 36.7 154/74(116) NSR 0 (11) 10(A) , No pain 10:04:43 94 15 97 36.7 159/75(113) NSR 0 (11) 10(A) , No pain 10:09:28 97 17 96 36.7 154/69(109) NSR 0 (11) 10(A) , No pain 10:14:08 91 13 97 38.9 160/74(105) NSR 0 (11) 10(A) , No pain Medications Time Medication Route Dose Verified Delivered Reason Notes Effectiveness by by 9:04:19 0.9% NaCl I.V. 100 Marcell Rupa used for ml/hr June Lynn java support engineer 9:04:25 Oxygen etCO2 2 Marcell Rupa used for Nasal l/min June Lynn procedure cannula RN 9:04:30 Lidocaine 2% added 20ml Marcell Faith for local to vial June Watkins MD anesthetic field 9:04:35 Heparin Flush added 2 Marcell Marcell used for Bag to bags June Watkins MD procedure (1000units/500ml field NS) 9:52:52 Versed I.V. 2 mg Marcell Rupa for sedation June Lynn RN 9:52:59 Fentanyl I.V. 50 Marcell Rupa for sedation mcg June Lynn RN 9:58:42 Versed I.V. 2 mg Marcell Rupa for sedation June Lynn RN 9:58:46 Fentanyl I.V. 50 Marcell Rupa for sedation mcg June Lynn RN 10:03:12 Versed I.V. 2 mg Marcell Rupa for sedation June Lynn RN 10:03:21 Fentanyl I.V. 50 Marcell Rupa for sedation mcg June Lynn RN 10:07:57 Versed I.V. 1 mg Marcell Rupa for sedation June Lynn RN 10:08:01 Fentanyl I.V. 25 Marcell Rupa for sedation mcg June Lynn RN 10:09:37 Heparin Bolus I.V. 4000 Marcell Rupa for verif ied units June Lynn anticoagulation with Dr. MICHEAL Watkins Procedure Log Time Note 8:40:18 Alan Suit RT(R) sent for patient. Start room use. 8:44:32 Signed procedure consent form obtained from patient. 8:44:34 Diagnostic Cath status Elective 8:44:35 Time tracking: Regular hours (M-F 7:00 - 5:00) 8:44:45 Plan of Care:Hemodynamics will remain stable., Cardiac rhythm will remain stable., Comfort level will be maintained., Respiratory function will remain adequate., Patient/ family verbilizes understanding of procedure., Procedure tolerated without complication., Recovers from procedure without complications.. 8:45:06 H&P Date Dictated: 04/23/2018 Within 30 days and on chart., H&P Addendum completed by physician on day of procedure. (MUST COMPLETE FOR ALL OUTPATIENTS). 8:45:23 Patient Height : 62 inches 8:45:26 Patient Weight : 250 lbs 8:56:36 Patient received from Pre/Post Procedure Room to CCL 1 Alert and oriented. Tansferred to table in Supine position. 8:56:37 Warm blankets applied, and vince hugger turned on for patient comfort. 8:56:37 Correct patient and procedure confirmed by team. 8:56:38 ECG and BP/O2 sat monitors applied to patient. 9:02:42 Vital chart was started 9:04:19 0.9% NaCl 100 ml/hr I.V. was administered by Rupa Lynn RN; used for procedure; 9:04:25 Oxygen 2 l/min etCO2 Nasal cannula was administered by Rupa Lynn RN; used for procedure; 9:04:30 Lidocaine 2% 20ml vial added to field was administered by Marcell Watkins MD; for local anesthetic; 9:04:35 Heparin Flush Bag (1000units/500ml NS) 2 bags added to field was administered by Marcell Watkins MD; used for procedure; 9:06:12 Baseline sample Acquired. 9::16 Rhythm: sinus rhythm 9::17 Full Disclosure recording started 9::17 Pre-procedure instructions explained to patient. 9::18 Pre-op teaching completed and patient verbalized understanding. 9::21 Family in patients room. 9::23 Patient NPO since Midnight. 9:09:18 Patient allergic to Other allergyREGLAN 9:09:20 Is patient on blood thinner?Yes 9:09:22 ACC The patient was administered the following blood thiners within the last 24 hours: ACCPlavix 9:09:23 Patient diabetic? No. 9:09:30 Snore? No 9:09:32 Sleep apnea? No 9:09:35 Previous problem with sedation/anesthesia? No ? 9:09:38 Deviated septum? No 9:09:39 Opens mouth fully? Yes 9:09:40 Sticks out tongue? Yes 9:09:42 Airway obstruction? No ? 9:09:46 Dentures? Yes IN TIGHT 9:09:49 Pre procedure: right dorsailis pedis pulse 2+ Normal; easily identifiable; not easily obliterated 9:09:52 Patient pain scale 0/10 ?. 9:10:07 IV patent on arrival in left hand with 0.9% NaCl at O. 9:10:32 Lab Result : Creatinine 1 mg/dl 9:10:32 Lab Result : BUN 18 mg/dl 9:10:32 Lab Result : Hemoglobin 13.7 g/dl 9:10:36 Lab results completed and on chart. 9:10:40 Right groin area was prepped with chlora-prep and draped in sterile fashion 9:10:41 Alarms reviewed by R. N. 9:10:41 Sharps counted by scrub and verified by R.N. 9:10:44 Use device set Femoral Dx 9:10:45 ACIST Syringe (69752) opened to sterile field. 9:10:46 Bag Decanter (2002S) opened to sterile field. 9:10:47 ACIST Manifold (17384) opened to sterile field. 9:10:47 ACIST Hand Control (94214) opened to sterile field. 9:10:48 Tegaderm 4 x 4 (1626W) opened to sterile field. 9:10:50 Medline Cath Pack ([id number]) opened to sterile field. 9:10:50 DIAGNOSTIC WIRE .035 260cm J wire (481557) opened to sterile field. 9:10:51 DIAGNOSTIC Multipack 5Fr catheter set (EW1287) opened to sterile field. 9:10:52 SHEATH 5FR [place] (YMV621) opened to sterile field. 9:16:28 Zero performed for pressure channel P1 9:52:46 --------ALL STOP TIME OUT------ 9:52:47 Final Timeout: patient, procedure, and site verified with staff and physician. All members of the team are in agreement. 9:52:49 Right groin site verified by team. 9:52:52 Versed 2 mg I.V. was administered by Rupa Lynn RN; for sedation; 9:52:53 Physical assessment completed. ASA score P 2 - A patient with mild systemic disease as per Marcell Watkins MD. 9:52:56 Sedation plan: IV Moderate Sedation Medication:Versed, Fentanyl 9:52:59 Fentanyl 50 mcg I.V. was administered by Rupa Lynn RN; for sedation; 9:57:47 Procedure started. 9:57:50 Local anesthetic to right femoral artery with Lidocaine 2% by Marcell Watkins MD.INITIAL ACCESS ONLY 9:58:42 Versed 2 mg I.V. was administered by Rupa Lynn RN; for sedation; 9:58:46 Fentanyl 50 mcg I.V. was administered by Rupa Lynn RN; for sedation; 9:58:57 A 5 Fr sheath was inserted into the Right Femoral artery 9:59:08 A MULTIPACK Pigtail 5 Fr catheter was advanced over the wire and used for Procedure. 9:59:10 LV gram done using POON 9:59:12 Injector settings: Ml/sec: 10, Volume: 20, 9:59:40 EF : 50 % 9:59:41 Catheter removed. 9:59:53 A MULTIPACK JL 4.0 5Fr catheter was advanced over the wire and used for Procedure. 10:01:04 LCA angiography performed. 10:01:05 Catheter removed. 10:01:35 A MULTIPACK 3DRC 5Fr catheter was advanced over the wire and used for Procedure. 10:02:03 RCA angiography performed. 10:02:04 Catheter removed. 10:02:18 SHEATH 6FR [place] (RQF154) opened to sterile field. 10:02:19 CHOICE PT Extra Support 182cm wire ([id number]) opened to sterile field. 10:02:23 INFLATOR Merit BasixCompak (IH4260) opened to sterile field. 10:02:48 Sheath upsized to a 6 Fr Short. 10:03:12 Versed 2 mg I.V. was administered by Rupa Lynn RN; for sedation; 10:03:17 GUIDE 6FR HS II SH catheter ([id number]) opened to sterile field. 10:03:21 Fentanyl 50 mcg I.V. was administered by Rupa Lynn RN; for sedation; 10:03:55 6 Fr HS2 SH guide catheter was inserted over the wire 10:06:39 Guide Catheter removed. unable to cannulate vessel. 10:06:46 GUIDE 6FR HS I SH catheter (DV3DLAWG) opened to sterile field. 10:07:15 6 Fr HS 1 SH guide catheter was inserted over the wire 10:07:57 Versed 1 mg I.V. was administered by Rupa Lynn RN; for sedation; 10:08:01 Fentanyl 25 mcg I.V. was administered by Rupa Lynn RN; for sedation; 10:08:18 CHOICE ES 182 wire advanced. 10:08:20 Wire advanced across lesion. 10:09:37 Heparin Bolus 4000 units I.V. was administered by Rupa Lynn RN; for anticoagulation; verified with Dr. Watkins 10:09:38 Place stent Inflation Number: 1 A DU RX 4.0 x 15 stent ([id number]) was prepped and advanced across the Prox RCA. The stent was deployed at 23 FARIDA for 0:00 (min:sec). 10:10:04 Stent catheter was removed intact over wire. 10:10:05 Wire removed. 10:10:06 Guide catheter removed. 10:10:13 EXOSEAL 6Fr (EX600) opened to sterile field. 10:10:45 Sheath removed intact; hemostasis achieved with Exoseal to the Right Femoral artery. 10:10:53 Procedure ended.(Physican Out) 10:13:00 Fluoroscopy time 03.80 minutes. 10:13:07 Flurop Dose total: 753 10:13:08 Fluoroscopy dose: 753 mGy 10:13:10 Contrast amount:Isovue 300 115ml. 10:13:13 Sharps counted by scrub and verified by R.N. 10:13:19 Post-op/insertion site Right Femoral artery dressed using a 4 x 4 and Tegaderm. 10:13:27 Post-procedure physical assessment completed. ASA score P 2 - A patient with mild systemic disease as per Marcell Watkins MD. 10:13:35 Post procedure rhythm: sinus rhythm 10:13:44 Estimated blood loss: 10 ml 10:13:45 Post procedure instruction explained to patient.Patient verbalizes understanding. 10:13:46 Patient needs reinforcement of post procedure teaching. 10:14:11 Procedure type changed to Cath procedure, Diagnostic procedure, LHC, LHC w/Coronaries, PCI procedure, Coronary Stent, Coronary Stent Initial 10:15:28 Procedure and supply charges have been captured, reviewed, submitted and are correct. 10:15:29 Procedure Complication : No complications 10:15:31 Vital chart was stopped 10:15:31 See physician's report for complete and final results. 10:15:33 Report given to Pre/Post Procedure Room. 10:16:10 Patient transfered to Pre/Post Procedure Room with Bed. 10:16:11 End room use (Document Last) Intervention Summary Intervention Notes Time ActionType Lesion and Equipment Used Action# Pressure Duration Attributes 10:09:[address] stent Prox RCA DU RX 4.0 x 1 23 00:00 15 stent ([id number]) Device Usage Item Name Manufacture Quantity Catalog Number Hospital Part Current M inimal Lot# / Charge Number Stock Stock Serial# Code ACIST Syringe Acist 1 22793 579851 970291 152772 2 0 () Medical Systems Inc Bag Decanter Microtek 1 166563 97399 723013 5 (2002S) Medical Inc. ACIST Manifold Acist 1 06924 031490 426950 856083 5 (05260) Medical Systems Inc ACIST Hand Acist 1 85212 984892 827886 125090 5 Control Medical (15836) Systems Inc Tegaderm 4 x 4 3M 1 1626W 797391 459401 522814 5 (1626W) Medline Cath Medline 1 [id number] 583488 94673 280473 5 Pack ([id number]) DIAGNOSTIC St Jesse 1 075596 131927 692336 609967 3 0 WIRE .035 260cm J wire (127667) DIAGNOSTIC Cardinal 1 HR4532 616541 29042 731538 3 0 Multipack 5Fr Health catheter set (VG3174) SHEATH 5FR Terumo 1 KZE760 123766 915883 441056 5 [place] (NOG271) MULTIPACK JL Cardinal 1 153659 5 4.0 5Fr Health catheter MULTIPACK Cardinal 1 228269 5 Pigtail 5 Fr Health catheter MULTIPACK 3DRC Cardinal 1 244977 5 5Fr catheter Health SHEATH 6FR Terumo 1 MQA320 866552 156582 145120 4 0 [place] (YGK479) CHOICE PT [place] 1 [id number] 656069 267982 329908 5 Extra Support Scientific 182cm wire ([id number]) INFLATOR Merit Merit 1 PM7524 200006 713618 921514 1 5 Open [place] (JF4197) GUIDE 6FR HS Medtronic 1 [id number] 242836 65709 048066 1 II SH catheter ([id number]) GUIDE 6FR HS I Medtronic 1 [id number] 351461 74635 194141 1 SH catheter (LJ0NOAGS) DU RX 4.0 x Medtronic 1 [id number] 506092 5212738 505594 5 [id number] 15 stent ([id number]) EXOSEAL 6Fr Cardinal 1 EX600 130083 428886 642603 1 0 (EX600) Health Signature Audit [place] Stage Time Signature Unsigned Intra-Procedure 05/16/2018 Staci Stack 10:16:54 AM RT(R) Signatures Monitor : Staci Stack Signature : RT Date : Time : [address] [place] [address]
[~2018-05-16 06:57] MED LIST changes: +LOPRESSOR25 MG PO
[2018-05-16 07:35] VITALS: BP 135/72; Ht 157.5 cm; Wt 113.6 kg
[2018-05-16 08:10] LABS: BASOPHILS 0.4 % (0-2); EOSINOPHILS 5.5 % (0-7); HEMATOCRIT 40.4 % (36.0-48.0); HEMOGLOBIN 13.7 g/dL (12-16); IMMATURE GRANULOCYTES 0.4 % (0-5); LYMPHOCYTES 21.9 % (15-50); MCH 30.2 pg (26.0-34.0); MCHC 33.9 g/dL (31.0-37.0); MCV 89.2 fL (80.0-100.0); MEAN PLATELET VOLUME 9.8 fL (7.4-10.4); MONOCYTES 8.2 % (2-11); NEUTROPHILS 63.6 % (40-80); RBC 4.53 10x6/uL (4.00-5.40); RDW 13.4 % (11.5-14.5); WBC 8.2 10x3/uL (4.8-10.8)
[2018-05-16 08:15] LABS: ANION GAP 16.3 mmol/L (8-16); CALCIUM 8.6 mg/dL (8.5-10.1); CARBON DIOXIDE 26.2 mmol/L (21.0-32.0); POTASSIUM - SERUM 3.5 mmol/L (3.5-5.1)
[2018-05-16 08:18] LABS: PLATELET COUNT 262 10x3/uL (130-400)
--- NOTE | 2018-05-16 10:20 | NUR ---
RECIEVED TO ROOM VIA STRETCHER FROM PAROLE OR PROBATION OFFICER WITH 6 FR EXOSEAL R/GROIN CDI NO BLEEDING OR HEMATOMA NOTED. HR 93 BP 157/73 CHEST PAIN IS DENIED.
--- NOTE | 2018-05-16 10:30 | NUR ---
6 FR EXOSEAL R/GROIN REMAINS CDI WITH NO BLEEDING OR HEMATOMA NOTED. SANDWICH AND SODA TO BEDSIDE WITH FAMILY PRESENT TO ASSIST.
--- NOTE | 2018-05-16 10:53 | NUR ---
6 FR EXOSEAL R/GROIN CDI WITH AREA SOFT TO TOUCH. R/FOOT WARM WITH PULSES PALPABLE. INSTRUCTED PATIENT TO KEEP HEAD FLAT ON PILLOW WITH RLE STRAIGHT
--- NOTE | 2018-05-16 11:34 | NUR ---
6 FR EXOSEAL R/GROIN REMAINS CDI WITH NO BLEEDING OR HEMATOMA NOTED.VITAL SIGNS WITHIN RANGE FOR PATIENT NO DISTRESS NOTED. RESTING QUIETLY WITH EYES CLOSED
--- NOTE | 2018-05-16 11:55 | NUR ---
PATIENT CONTINUES TO REST WITH NO DISTRESS VSS AND 6 FR EXOSEAL R/GROIN CDI
--- NOTE | 2018-05-16 12:43 | NUR ---
PATIENT DENIED PAIN OR NEEDS TOLERATING SANDWICH WITH NAUSEA DENIED. 6 FR EXOSEAL R/GROIN IS CDI
--- NOTE | 2018-05-16 13:31 | NUR ---
6 FR EXOSEAL R/GROIN REMAINS CDI WITH NO BLEEDING NOTED. REPOSITIONED PATIENT TO SITTING WITH HOB UP 30 FOR COMFORT
--- NOTE | 2018-05-16 14:10 | NUR ---
PIV REMOVED WITH DRESSING APPLIED. 6 FR EXOSEAL R/GROIN REMAINS CDI NO BLEEDING OR HEMATOMA NOTED. PATIENT DENIED PAIN OR NEEDS SHE GETS UP TO DRESS FOR DISCHARGE HOME
--- NOTE | 2018-05-16 14:15 | NUR ---
VERBAL AND WRITTEN DISCHARGE GONE OVER WITH PATIENT. CHEST PAIN IS DENIED.6 FR EXOSEAL R/GROIN IS CDI PATIENT TRANSPORTED VIA WC TO PARKING FOR RIDE HOME
--- NOTE | 2018-05-17 18:15 | OP ---
PATIENT NAME: SAPPHIRE LARA MEDICAL RECORD: [id number] :48 LOCATION:D.CAT ADMISSION DATE: SURGEON: ANYI MALAVE MD DATE OF OPERATION: 05/16/2018 DATE OF SERVICE: 05/16/2018 PROCEDURES: 1. PTCA stent RCA. 2. Left heart catheterization. 3. Selective coronary angiography. 4. Left ventriculogram. INDICATION: Angina and coronary artery disease. PROCEDURE IN DETAIL: After informed consent was obtained and after a detailed description of the risks, benefits as well as alternative therapies, the patient elected to proceed with angiogram and angioplasty. The right femoral area was prepped and draped in normal sterile fashion. Right femoral artery was cannulated via modified Seldinger technique with placement of 6-Serbian sheath. All catheters exchanged through this sheath. FINDINGS: The left ventriculogram was performed in standard 30-degree POON view, reveals good cardiac wall motion throughout all segments. Overall ejection fraction estimated at 60%. SELECTIVE CORONARY ANGIOGRAPHY: 1. Left main has no significant angiographic disease. 2. Left anterior descending has moderate irregularities, but no flow-limiting stenosis. 3. The left circumflex has moderate irregularities, but no flow-limiting stenosis. 4. The right coronary has previously placed stents. There is 90% in-stent restenosis proximally. PTCA STENT OF THE RIGHT CORONARY: The stent used was a 4.0 x 15 mm Horatio taken at 23 atmospheres. Result was 0% residual stenosis. OVERALL IMPRESSION: Successful percutaneous transluminal coronary angioplasty stent of the right coronary artery for in-stent restenosis up to 90% to 0% residual stenosis. TRANSINT:[id number] Voice Confirmation ID: [id number] DOCUMENT ID: [id number] ANYI MALAVE MD at 1815 CC: [id number] DICTATION DATE: 05/16/18 1015 RIPSAW MATCHER: 05/16/18 1036 DEP CLI 05/16/[address] [address]
== END | disposition home or self-care (01) ==
LOC: D.CATH 05-15 09:30
PROVIDERS: Internal Medicine Interventional Cardiology
DX: I25.110 Atherosclerotic heart disease of native coronary artery with unstable angina pectoris (principal); R94.30 Abnormal result of cardiovascular function study, unspecified

== ENCOUNTER → 2018-05-23 12:09 | Outpatient (CLI) | payer OTHER ==
[2018-05-16 07:35] VITALS: BMI 45.8
[~2018-05-23 12:09] MED LIST changes: +KLONOPIN0.5 MG PO; +VITAMIN D5000 UNIT PO
== END | disposition home or self-care (01) ==
LOC: D.CT 12:09
DX: M25.532 Pain in left wrist (principal)

== ENCOUNTER → 2018-06-04 06:27 | Outpatient (CLI) | payer BC, MEDICARE ==
[2018-05-16 07:35] VITALS: BMI 45.8
== END | disposition home or self-care (01) ==
LOC: D.CT 06:27
DX: I73.9 Peripheral vascular disease, unspecified (principal); M79.605 Pain in left leg; M79.604 Pain in right leg

== ENCOUNTER 2018-06-11 07:32 | Outpatient (CLI) | payer BC, MEDICARE ==
[~2018-06-11] VITALS: Ht 157.5 cm; Wt 109.1 kg
--- NOTE | ~2018-06-11 | HEMODYNAMI ---
PATIENT:SAPPHIRE LARA MEDICAL RECORD: [id number] : 48 LOCATION:DFLOR ADMISSION DATE: 06/11/18 Generatedon:06/11/20188:43 Patient name: SAPPHIRE LARA Patient #: [id number] SSN: : 1950 Date of study: 06/11/2018 Page: Of Hemodynamic Procedure Report Patient Data Patient Demographics Procedure consent was obtained First Name: SAPPHIRE Gender: Female Last Name: MARCO : 1950 [facility] Initial: J Age: 67 year(s) Patient #: [id number] Race: Unknown Additional ID: [id number] Contact details [address]: [address] [place] [address] State: [place] City: [place] Zip code: [address] Past Medical History Allergies Allergen Reaction Date Comments Reported Other allergy 09/25/2017 metoclopramide Other allergy 05/16/2018 REGLAN Contrast 06/11/2018 REGLAN Admission Admission Data Admission Date: 06/11/2018 Admission Time: 7:32 Admit Source: Other Height (in.): 62 BSA: 2.1 (m2) Height (cm.): 157.48 BMI: 45.73 (kg/m2) Weight (lbs.): 250 Weight (kg.): 113.4 Procedure Procedure Types Cath Procedure Peripheral Cath Diagnostic Procedure Talent Consultant Peripheral Procedures Tytho-[id number]-Ken-Off Procedure Description Procedure Date Procedure Date: 06/11/2018 Procedure Start Time: 8:35 Procedure End Time: 8:41 Procedure Staff Name Function Marcell Watkins MD Performing Physician Staci Stack RT Monitor Edilberto Peterson RT Scrub Tariq Cohen RN Nurse Alan Tovar RT Hand Router Operator Procedure Data Cath Procedure Fluoroscopy Diagnostic fluoroscopy Total fluoroscopy Time: 0.4 time: 0.4 min min Diagnostic fluoroscopy Total fluoroscopy dose: 192 dose: 192 mGy mGy Contrast Material Contrast Material Type Amount (ml) Isovue 300 81 Entry Location Entry Primary Successful Side Size Upsize Upsize Entry Closure Succes sful Closure Location (Fr) 1 (Fr) 2 (Fr) Remarks Device Remarks Femoral Right 5 Fr Exoseal artery Estimated blood loss: 5 ml Diagnostic catheters Device Type Used For End Catheter Placement DIAGNOSTIC UF 5Fr Procedure catheter ([id number]) Procedure Complications No complications Procedure Medications Medication Administration Route Dosage Oxygen etCO2 Nasal cannula 2 l/min Heparin Flush Bag added to field 2 bags (1000units/500ml NS) 0.9% NaCl I.V. 100 ml/hr Lidocaine 2% added to field 20 Fentanyl I.V. 50 mcg Versed I.V. 1 mg Fentanyl I.V. 50 mcg Versed I.V. 1 mg Fentanyl I.V. 100 mcg Versed I.V. 1 mg Hemodynamics Rest BSA: 2.1 (m2) O2 Consumption: Estimated: 211.23 (ml/min) O2 Consumption indexed: Estimated:100.59 (ml/min/m) Heart Rate: 91 (bpm) Snapshots Pre Cath Intra NCS Post Cath Vital Signs Time Heart Resp SPO2 etCO2 NIBP (mmHg) Rhythm Pain Sedation Rate (ipm) (%) (mmHg) Status Level (bpm) 8:25:13 94 17 100 0 158/78(114) NSR 0 (11) 10(A) , No pain 8:29:46 88 16 100 34.9 152/75(101) NSR 0 (11) 10(A) , No pain 8:34:12 87 16 94 19.7 126/50(81) NSR 0 (11) 10(A) , No pain 8:38:22 89 17 94 23.5 121/74(106) NSR 0 (11) 9(A) , No pain 8:42:30 88 17 95 35.6 140/76(108) NSR 0 (11) 9(A) , No pain Medications Time Medication Route Dose Verified Delivered Reason Notes Effec tiveness by by 8:24:11 Oxygen etCO2 2 Marcell Potter Per Nasal l/min June Cohen RN physician cannula 8:24:19 Heparin Flush added 2 Marcell Potter used for Bag to bags June Cohen program strategist (1000units/500ml field NS) 8:24:26 0.9% NaCl I.V. 100 Marcell Potter Per ml/hr June Cohen RN physician 8:24:35 Lidocaine 2% added 20ml Marcell Potter used for to vial June Cohen RN procedure field 8:30:54 Fentanyl I.V. 50 Marcell Mezay for [facility] June Cohen RN sedation 8:31:00 Versed I.V. 1 mg Marcell Potter for June Cohen RN sedation 8:33:00 Fentanyl I.V. 50 Marcell Mezay for nikole Cohen RN sedation 8:33:05 Versed I.V. 1 mg Marcell Potter for June Cohen RN sedation 8:36:37 Fentanyl I.V. 100 Marcell Tariq for nikole Cohen RN sedation 8:36:41 Versed I.V. 1 mg Marcell Potter for June Cohen RN sedation Procedure Log Time Note 8:02:54 Alan Tovar RT(R) sent for patient. Start room use. 8:14:32 Informed consent obtained and on chart 8:14:35 Admit Source: Other 8:14:53 Diagnostic Cath status Elective 8:14:55 Time tracking: Regular hours (M-F 7:00 - 5:00) 8:14:57 Plan of Care:Hemodynamics will remain stable., Cardiac rhythm will remain stable., Comfort level will be maintained., Respiratory function will remain adequate., Patient/ family verbilizes understanding of procedure., Procedure tolerated without complication., Recovers from procedure without complications.. 8:18:05 Patient received from Pre/Post Procedure Room to CCL 2 Alert and oriented. Tansferred to table in Supine position. 8:18:06 Warm blankets applied, and vince hugger turned on for patient comfort. 8:18:07 Correct patient and procedure confirmed by team. 8:18:08 ECG and BP/O2 sat monitors applied to patient. 8:18:09 Pre-procedure instructions explained to patient. 8:18:09 Pre-op teaching completed and patient verbalized understanding. 8:18:20 H&P Date Dictated: 05/31/2018 Within 30 days and on chart., H&P Addendum completed by physician on day of procedure. (MUST COMPLETE FOR ALL OUTPATIENTS). 8:23:54 Vital chart was started 8:24:11 Oxygen 2 l/min etCO2 Nasal cannula was administered by Tariq Cohen RN; Per physician; 8:24:19 Heparin Flush Bag (1000units/500ml NS) 2 bags added to field was administered by Tariq Cohen RN; used for procedure; 8:24:26 0.9% NaCl 100 ml/hr I.V. was administered by Tariq Cohen RN; Per physician; 8:24:35 Lidocaine 2% 20ml vial added to field was administered by Tariq Cohen RN; used for procedure; 8:24:47 Baseline sample Acquired. 8::52 Rhythm: sinus rhythm 8::53 Full Disclosure recording started 8:24:56 Family in patients room. 8:25:29 Patient allergic to ContrastREGLAN 8:25:31 Is patient on blood thinner?Yes 8:25:33 ACC The patient was administered the following blood thiners within the last 24 hours: ACCPlavix 8:25:35 Patient diabetic? No. 8:25:39 Patient not . Patient is over age 55. 8:25:41 Previous problem with sedation/anesthesia? No ? 8:25:43 Snore? No 8:25:44 Sleep apnea? No 8:25:45 Deviated septum? No 8:25:50 Opens mouth fully? Yes 8:25:52 Sticks out tongue? Yes 8:25:54 Airway obstruction? No ? 8:25:57 Dentures? Yes IN TIGHT 8:29:33 Pre procedure: right dorsailis pedis pulse 1+ Palpable, but thready & weak; easily obliterated 8:29:35 Pre procedure: left dorsailis pedis pulse 1+ Palpable, but thready & weak; easily obliterated 8:29:38 Patient pain scale 0/10 ?. 8:29:46 IV patent on arrival in left hand with 0.9% NaCl at [facility]. 8:30:08 Bilateral groins area was prepped with chlora-prep and draped in sterile fashion 8:30: Alarms reviewed by REarl N. 8:30: Sharps counted by scrub and verified by R.N. 8:30:24 --------ALL STOP TIME OUT------ 8:30:24 Final Timeout: patient, procedure, and site verified with staff and physician. All members of the team are in agreement. 8:30: Bilateral groins site verified by team. 8:30:28 Fire Safety Assessment: A--An alcohol-based skin anteseptic being used preoperatively., C--Open oxygen or nitrous oxide is being used., D--An ESU, laser, or fiber-optic light is being used. 8:30:32 Physical assessment completed. ASA score P 2 - A patient with mild systemic disease as per Marcell Watkins MD. 8:30:35 Sedation plan: IV Moderate Sedation Medication:Versed, Fentanyl 8:30:42 Use device set CATH PACK 8:30:44 ACIST Syringe (24424) opened to sterile field. 8:30:45 ACIST Hand Control (61009) opened to sterile field. 8:30:45 ACIST Manifold (59564) opened to sterile field. 8:30:46 Medline Cath Pack ([id number]) opened to sterile field. 8:30:46 Bag Decanter (2002S) opened to sterile field. 8:30:47 DIAGNOSTIC WIRE .035 260cm J wire (607313) opened to sterile field. 8:30:53 SHEATH 5FR [place] (BSX994) opened to sterile field. 8:30:54 Fentanyl 50 mcg I.V. was administered by Tariq Cohen RN; for sedation; 8:31:00 Versed 1 mg I.V. was administered by Tariq Cohen RN; for sedation; 8:32:47 Patient Height : 62 inches 8:32:52 Patient Weight : 250 lbs 8:33:00 Fentanyl 50 mcg I.V. was administered by Tariq Cohen RN; for sedation; 8:33:05 Versed 1 mg I.V. was administered by Tariq Cohen RN; for sedation; 8:34:47 Zero performed for pressure channel P1 8:35:16 Procedure started. 8:35:20 Local anesthetic to right femoral artery with Lidocaine 2% by Marcell Watkins MD.INITIAL ACCESS ONLY 8:36:14 A 5 Fr sheath was inserted into the Right Femoral artery 8:36:34 A DIAGNOSTIC UF 5Fr catheter ([id number]) was advanced over the wire and used for Procedure. 8:36:37 Fentanyl 100 mcg I.V. was administered by Tariq Cohen RN; for sedation; 8:36:41 Versed 1 mg I.V. was administered by Tariq Cohen RN; for sedation; 8:37:10 Abdominal angiogram w/ runoff was performed. 8:37:30 Right leg runoff performed. 8:37:53 Left leg runoff performed. 8:38:23 Catheter removed. 8:38:32 EXOSEAL 5Fr (EX500) opened to sterile field. 8:38:41 Sheath removed intact; hemostasis achieved with Exoseal to the Right Femoral artery. 8:38:44 Procedure ended.(Physican Out) 8:39:01 Fluoroscopy time 00.40 minutes. 8:39:04 Fluoroscopy dose: 192 mGy 8:39:04 Flurop Dose total: 192 8:39:07 Contrast amount:Isovue 300 81ml. 8:39:08 Sharps counted by scrub and verified by R.N. 8:39:11 Post-op/insertion site Right Femoral artery dressed using a 4 x 4 and Tegaderm. 8:40:36 Post-procedure physical assessment completed. ASA score P 2 - A patient with mild systemic disease as per Marcell Watkins MD. 8:41:00 Post procedure rhythm: sinus rhythm 8:41:02 Estimated blood loss: 5 ml 8:41:05 Post procedure instruction explained to patient.Patient verbalizes understanding. 8:41:06 Patient needs reinforcement of post procedure teaching. 8:41:28 Procedure and supply charges have been captured, reviewed, submitted and are correct. 8:41:30 Procedure Complication : No complications 8:41:32 Vital chart was stopped 8:41:32 See physician's report for complete and final results. 8:41:34 Report given to Pre/Post Procedure Room. 8:41:36 Patient transfered to Pre/Post Procedure Room with Bed. 8:41:38 Procedure ended. 8:41:38 Full Disclosure recording stopped 8:41:41 End room use (Document Last) Device Usage Item Name Manufacture Quantity Catalog Hospital Part Current Minimal L ot# / Number Charge Number Stock Stock Serial# Code ACIST Acist 1 12514 [id number] 202659 423120 20 Syringe Medical (11128) Systems Inc ACIST Hand Acist 1 64777 910989 986975 251512 5 Control Medical (35248) Systems Inc ACIST Acist 1 05793 799637 724680 416811 5 Manifold Medical (50396) Systems Inc Medline Medline 1 [id number] 308963 69984 038238 5 Cath Pack ([id number]) Bag Microtek 1 831483 50119 625852 5 [employer] () DIAGNOSTIC St Jesse 1 801460 847173 633540 246771 30 WIRE .035 260cm J wire (847223) SHEATH 5FR Terumo 1 [id number] 294993 667871 599583 5 Riverside (CFS511) DIAGNOSTIC Cardinal 1 [id number] 489099 279321 758796 10 UF 5Fr Health catheter ([id number]) EXOSEAL 5Fr Cardinal 1 EX500 190410 725280 485774 10 (EX500) Health Signature Audit Mayo Stage Time Signature Unsigned Intra-Procedure 06/11/2018 Staci Stack 8:43:36 AM RT(R) Signatures Monitor : Staci Stack Signature : RT Date : Time : [address] [address]
[~2018-06-11 07:32] MED LIST changes: -KLONOPIN0.5 MG PO; -VITAMIN D5000 UNIT PO
[2018-06-11] MEDS ORDERED: KLONOPIN0.5 MG PO (07:42)
[2018-06-11] MEDS ORDERED: VITAMIN D5000 UNIT PO (07:43)
[2018-06-11 07:48] VITALS: BP 129/59; Ht 157.5 cm; Wt 109.1 kg
[2018-06-11 08:29] LABS: BASOPHILS 0.4 % (0-2); HEMATOCRIT 41.2 % (36.0-48.0); HEMOGLOBIN 13.9 g/dL (12-16); IMMATURE GRANULOCYTES 0.4 % (0-5); LYMPHOCYTES 23.6 % (15-50); MCH 30.3 pg (26.0-34.0); MCHC 33.7 g/dL (31.0-37.0); MEAN PLATELET VOLUME 9.8 fL (7.4-10.4); NEUTROPHILS 65.6 % (40-80); PLATELET COUNT 261 10x3/uL (130-400); RBC 4.58 10x6/uL (4.00-5.40); RDW 13.8 % (11.5-14.5); WBC 8.5 10x3/uL (4.8-10.8)
[2018-06-11 08:41] LABS: CALC OSMOLALITY 282 mosm/kg (275-300); CALCIUM 9.3 mg/dL (8.5-10.1); CARBON DIOXIDE 24.3 mmol/L (21.0-32.0); CHLORIDE - SERUM 103 mmol/L (98-107); CREATININE - SERUM 0.7 mg/dL (0.6-1.3); GLUCOSE 141 mg/dL (74-106); POTASSIUM - SERUM 4.5 mmol/L (3.5-5.1); SODIUM 140 mmol/L (136-145); UREA NITROGEN 19 mg/dL (7-18); eGFR NON AFRICAN AMERICAN 88 mL/min (90-120)
--- NOTE | 2018-06-11 09:06 | NUR ---
HOB IS FLAT, DRESSING CDI TO RIGHT GROIN, AREA IS SOFT AND NONTENDER. PEDAL PULSES PALPABLE. PT IS DROWSY, AWAKENS EASILY, DENIES ANY C/O. VSS, FAMILY AT BEDSIDE. PO FLUIDS AT BEDSIDE.
--- NOTE | 2018-06-11 09:22 | NUR ---
PT ALERT, DENIES ANY C/O. DRESSING IS CDI TO RIGHT GROIN, AREA IS SOFT AND NONTENDER. PEDAL PULSES PALPABLE. HOB IS FLAT, VSS, FAMILY AT BEDSIDE, CALL LIGHT IN REACH.
--- NOTE | 2018-06-11 09:56 | NUR ---
DRESSING CDI, VSS, HOB IS FLAT, PT DENIES ANY C/O.
--- NOTE | 2018-06-11 10:30 | NUR ---
HOB ELEVATED 30 DEGRESS AND SANDWICH/ PO FLUIDS SERVED. PT IS ALERT AND DENIES ANY C/O. DRESSING IS CDI TO RIGHT GROIN, AREA IS SOFT AND NONTENDER. PEDAL PULSES PALPABLE. VSS. FAMILY AT BEDSIDE.
--- NOTE | 2018-06-11 10:45 | NUR ---
DRESSING REMAINS CDI, PEDAL PULSES PALPABLE. HOB FULLY ELEVATED, PT DENIES ANY C/O.
--- NOTE | 2018-06-11 11:21 | NUR ---
1100 DC INSTRUCTIONS HAVE BEEN REVIEWED WITH PT AND FAMILY WHO VERBALIZE UNDERSTANDING. IV HAS BEEN DC'D WITH CATH INTACT. PT DRESSING FOR DC WITH ASSIST. DRESSING REMAINS CDI TO RIGHT GROIN, PEDAL PULSES PALPABLE. 1115 PT IS DRESSED FOR DC TO HOME, DENIES ANY C/O. HAS BEEN UP AMBULATING IN ROOM. PT ESCORTED TO PRIVATE AUTO VIA WC BY NURSE WITH FRIEND DRIVING HER HOME.
--- NOTE | 2018-06-11 11:46 | OP ---
PATIENT NAME: SAPPHIRE LARA MEDICAL RECORD: [id number] :48 LOCATION:D.CAT ADMISSION DATE: SURGEON: ANYI MALAVE MD DATE OF OPERATION: 06/11/2018 PROCEDURES: 1. Aortofemoral runoff. 2. Abdominal aortography. INDICATION: Claudication symptomatology, peripheral vascular disease. PROCEDURE IN DETAIL: After informed consent was obtained and after detailed explanation of risks, benefits as well as alternative therapies, the patient elected to proceed with angiogram and angioplasty. The right femoral area was prepped and draped in normal sterile fashion. Right femoral artery was cannulated via modified Seldinger technique with placement of 5-Maltese sheath. All catheters exchanged through this sheath. FINDINGS: Abdominal angiography was performed. The catheter was pulled down for aortofemoral runoff. Abdominal aortography reveals no significant abdominal aortic disease, no dissection or annulus formation. No renal artery stenosis. RIGHT LEG: A. Iliac: The common internal and external iliacs have mild irregularities, but no flow-limiting stenosis. B. Femoral system: Superficial and deep femoral have mild irregularities, but no flow-limiting stenosis. C. Popliteal and infrapopliteal vessels are patent with good 3-vessell runoff to the foot. LEFT LEG: A. Iliac: The common internal and external iliacs have mild irregularities, but no flow-limiting stenosis. B. Femoral system: Superficial and deep femoral have mild irregularities, but no flow-limiting stenosis. C. Popliteal and infrapopliteal vessels are patent with good 3-vessell runoff to the foot. OVERALL IMPRESSION: Minimal peripheral vascular disease is present. No flow limiting stenosis, leg pain is not secondary to arterial vascular insufficiency. TRANSINT:[id number] Voice Confirmation ID: [id number] DOCUMENT ID: [id number] ANYI MALAVE MD at 1146 CC: [id number] DICTATION DATE: 06/11/18 0842 W[place]SH[place]ELD TECHNICIAN: 06/11/18 09 DEP CLI 06/11/18 [place] [id number]
== END 2018-06-11 11:15 | disposition home or self-care (01) ==
LOC: D.CATH 07:32
PROVIDERS: Internal Medicine Interventional Cardiology
DX: M79.605 Pain in left leg (principal); M79.604 Pain in right leg; Z01.812 Encounter for preprocedural laboratory examination

== ENCOUNTER → 2018-07-19 07:53 | Outpatient (CLI) | payer BC ==
[2018-06-11 07:48] VITALS: BMI 44.0
[~2018-07-19 07:53] MED LIST changes: +KLONOPIN0.5 MG PO; +VITAMIN D5000 UNIT PO
== END | disposition home or self-care (01) ==
LOC: D.US 07:53
PROVIDERS: ATTEND Family Medicine
DX: R09.89 Other specified symptoms and signs involving the circulatory and respiratory systems (principal)

== ENCOUNTER → 2018-07-25 05:36 | Outpatient (CLI) | payer BC ==
[2018-06-11 07:48] VITALS: BMI 44.0
== END | disposition home or self-care (01) ==
LOC: D.CT 05:36
PROVIDERS: ATTEND Family Medicine
DX: R94.39 Abnormal result of other cardiovascular function study (principal)

== ENCOUNTER 2018-08-17 19:00 | Outpatient (CLI) | payer BC | END 2018-08-17 23:59 | disposition home or self-care (01) | LOC: D.MAMMO 19:00 | DX: Z12.31 Encounter for screening mammogram for malignant neoplasm of breast (principal) ==

== ENCOUNTER → 2018-09-10 17:38 | Outpatient (CLI) | payer OTHER, MEDICARE ==
[2018-06-11 07:48] VITALS: BMI 44.0
[2018-09-10 18:11] LABS: CHOL - HDL RATIO 2.2 ratio (2.3-4.1)
== END | disposition home or self-care (01) ==
LOC: D.LABREF 17:38
PROVIDERS: ATTEND Internal Medicine Interventional Cardiology
DX: I25.10 Atherosclerotic heart disease of native coronary artery without angina pectoris (principal)

== ENCOUNTER 2018-12-04 03:01 | Inpatient (IN) | payer BC ==
[2018-12-04] VITALS (8 sets, daily range): BP systolic 85–117; BP diastolic 36–69; BMI 39.4
[~2018-12-04] VITALS: Ht 157.5 cm; Wt 115.5 kg
[2018-12-04] MEDS ORDERED: K-DUR20 MEQ PO (03:12)
[2018-12-04 04:26] LABS: APPEARANCE CLEAR (CLEAR); BILIRUBIN NEGATIVE (NEGATIVE); COLOR YELLOW (YELLOW); GLUCOSE NEGATIVE (NEGATIVE); KETONE NEGATIVE (NEGATIVE); NITRITE NEGATIVE (NEGATIVE); PROTEIN NEGATIVE (NEGATIVE); SPECIFIC GRAVITY 1.015 (1.005-1.020); UROBILINOGEN NORMAL (NORMAL)
[2018-12-04 04:27] LABS: BACTERIA FEW /hpf (NONE SEEN); EPITHELIAL CELLS 0-5 /hpf (0-5); RED CELLS - URINE 0-5 /hpf (0-5); WHITE CELLS - URINE 0-5 /hpf (0-5)
--- NOTE | 2018-12-04 04:30 | NUR ---
BLANKET PROVIDED FOR PT COMFORT. MULTIPLE FAMILY MEMBERS AT BEDSIDE. SIDE RAILS UP FOR REPOSITIONING, CALL LIGHT IN REACH, BED IN LOWEST POSITION. DENIES NEEDS AT THIS TIME.
[2018-12-04 05:08] LABS: HEMATOCRIT 42.4 % (36.0-48.0); HEMOGLOBIN 14.4 g/dL (12-16); RBC 4.74 10x6/uL (4.00-5.40); WBC 24.2 10x3/uL (4.8-10.8)
[2018-12-04 05:09] LABS: MCH 30.4 pg (26.0-34.0); MCV 89.5 fL (80.0-100.0); MEAN PLATELET VOLUME 9.8 fL (7.4-10.4); PLATELET COUNT 240 10x3/uL (130-400); RDW 13.9 % (11.5-14.5)
[2018-12-04 05:10] LABS: CALC OSMOLALITY 275 mosm/kg (275-300); CALCIUM 9.1 mg/dL (8.5-10.1); CARBON DIOXIDE 24.1 mmol/L (21.0-32.0); CHLORIDE - SERUM 100 mmol/L (98-107); GLUCOSE 159 mg/dL (74-106); POTASSIUM - SERUM 4.1 mmol/L (3.5-5.1); SODIUM 136 mmol/L (136-145); UREA NITROGEN 15 mg/dL (7-18); eGFR NON AFRICAN AMERICAN 58 mL/min (90-120)
[2018-12-04 05:11] LABS: ALBUMIN 3.3 g/dL (3.4-5.0); ALKALINE PHOSPHATASE 161 U/L (46-116); ALT (SGPT) 37 U/L (10-68); BILIRUBIN - TOTAL 1.87 mg/dL (0.2-1.3); PROTEIN - SERUM 8.3 g/dL (6.4-8.2)
[2018-12-04 05:16] LABS: APTT 23.1 SECONDS (22.8-39.4); INR 1.09 (0.85-1.17); PROTIME 13.6 SECONDS (11.6-15.0)
[2018-12-04 05:33] LABS: CKMB 0.4 U/L (0.0-3.6); CREATINE KINASE 86 UL (21-215); PRO BNP 286 pg/mL (0-125); TROPONIN-I < 0.017 ng/mL (0.000-0.060)
--- NOTE | 2018-12-04 06:15 | NUR ---
PT REQUESTING SHEET IN PLACE OF BLANKET, STATES "I'M FINALLY WARMING UP." BLANKET REMOVED AND SHEET PROVIDED AT THIS TIME. DENIES FURTHER NEEDS. FAMILY AT BEDSIDE.
--- NOTE | 2018-12-04 06:53 | NUR ---
PT UP TO RESTROOM WITH STANDBY ASSIST AT THIS TIME. SLOW AND STEADY GAIT. DENIES ANY FURTHER NEEDS. FAMILY AT BEDSIDE.
--- NOTE | 2018-12-04 08:00 | NUR ---
ARRIVE TO ROOM VIA WHEELCHAIR FROM ER. ALERT AND ORIENTED X4. AMBULATES TO BED. GAIT STEADY. IV BOLUS INFUSING THROUGH RT FA 20G IV. DRY HACKING NONPRODUCTIVE COUGH. INFORM SPUTUM COLLECTION NEEDED WHEN ABLE. REFUSE SCDs DUE TO USING RESTROOM FREQUENTLY FROM LASIX. CONTINUE ADMISSION PROCESS AND SAFETY PRECAUTIONS.
[2018-12-04 09:42] LABS: LYMPHOCYTES 13 % (15-50); MONOCYTES 10 % (2-11); NEUTROPHILS 72 % (40-80); PLATELET ESTIMATE NORMAL
[2018-12-04 09:43] LABS: ROULEAUX OCC
[2018-12-04] MEDS ORDERED: LIPITOR10 MG PO (09:43)
[2018-12-04] MEDS ORDERED: ULTRAM50 MG PO (09:43)
--- NOTE | 2018-12-04 15:49 | NUR ---
ALERT AND ORIENTED X4. SITTING UP IN BED. REFUSES D-DIMER UNTIL SEEING . HARD STICK. 4 LAB TECHS ATTEMPT. IV FLUIDS INITIATED PER FOR HYPOTENSION. CONTINUE PLAN OF CARE AND SAFETY PRECAUTIONS.
--- NOTE | 2018-12-04 19:36 | NUR ---
PATIENT IS ALERT AND ORIENTED, RESTING COMFORTABLY IN BED. RESPIRATIONS ARE EVEN AND UNLABORED. NO S/S OF DISTRESS. NO C/O PAIN. CALL LIGHT WITHIN REACH. WILL CPOC.
--- NOTE | 2018-12-04 22:51 | NUR ---
MEDICATIONS ADMINISTERED. ASSESSMENT COMPLETE. PATIENT QUESTIONING WHY HER PLAVIX HAD NOT BEEN ORDERED, SINCE SHE HAS A HX OF STENTS.
[2018-12-04] MEDS ORDERED: PLAVIX75 MG PO (23:10)
[2018-12-05 07:13] LABS: ANION GAP 12.7 mmol/L (8-16); CALCIUM 8.2 mg/dL (8.5-10.1); CARBON DIOXIDE 25.6 mmol/L (21.0-32.0); MAGNESIUM - SERUM 1.8 mg/dL (1.8-2.4); PHOSPHOROUS 2.6 mg/dL (2.5-4.9)
[2018-12-05 07:14] LABS: POTASSIUM - SERUM 3.3 mmol/L (3.5-5.1)
[2018-12-05 07:26] LABS: BASOPHILS 0.1 % (0-2); EOSINOPHILS 1.4 % (0-7); HEMATOCRIT 33.6 % (36.0-48.0); HEMOGLOBIN 11.3 g/dL (12-16); IMMATURE GRANULOCYTES 0.5 % (0-5); LYMPHOCYTES 7.8 % (15-50); MCH 30.3 pg (26.0-34.0); MCHC 33.6 g/dL (31.0-37.0); MCV 90.1 fL (80.0-100.0); MEAN PLATELET VOLUME 9.6 fL (7.4-10.4); MONOCYTES 4.5 % (2-11); NEUTROPHILS 85.7 % (40-80); PLATELET COUNT 213 10x3/uL (130-400); RBC 3.73 10x6/uL (4.00-5.40); RDW 14.5 % (11.5-14.5); WBC 21.6 10x3/uL (4.8-10.8)
[2018-12-05 08:30] VITALS: BP 94/49
[2018-12-05 12:59] VITALS: BP 105/48
[2018-12-05 16:04] VITALS: BP 102/46
[2018-12-05 20:00] VITALS: BP 119/69
[2018-12-06 00:34] VITALS: BP 105/47
--- NOTE | 2018-12-06 04:45 | NUR ---
INFORMED BY PRODUCT PICKER. THAT PATIENT CONVERTED TO UNCONTROLLED AFIB. ASSESSED PATIENT. CALLED ANURAD[facility] ORDERS TO CONSULT CARDIOLOGY GIVEN.
[2018-12-06 05:01] VITALS: BP 104/52
[2018-12-06 05:06] LABS: BASOPHILS 0.2 % (0-2); EOSINOPHILS 2.7 % (0-7); HEMATOCRIT 32.8 % (36.0-48.0); IMMATURE GRANULOCYTES 0.4 % (0-5); LYMPHOCYTES 8.9 % (15-50); MCH 30.1 pg (26.0-34.0); MCHC 33.5 g/dL (31.0-37.0); MCV 89.9 fL (80.0-100.0); MEAN PLATELET VOLUME 9.8 fL (7.4-10.4); MONOCYTES 4.8 % (2-11); PLATELET COUNT 222 10x3/uL (130-400); RBC 3.65 10x6/uL (4.00-5.40); RDW 14.4 % (11.5-14.5)
[2018-12-06 05:22] LABS: WBC 15.3 10x3/uL (4.8-10.8)
[2018-12-06 05:46] LABS: % SATURATION 16 % (15-55); IRON 38 ug/dl (35-150); TOTAL IRON BIND CAPACITY 229 ug/dl (260-445); UNSAT IRON BIND CAPACITY 191 ug/dl (150-375)
[2018-12-06 05:59] LABS: ANION GAP 12.6 mmol/L (8-16); CALCIUM 8.3 mg/dL (8.5-10.1); CREATININE - SERUM 0.9 mg/dL (0.6-1.3); MAGNESIUM - SERUM 1.9 mg/dL (1.8-2.4); PHOSPHOROUS 2.5 mg/dL (2.5-4.9); POTASSIUM - SERUM 3.6 mmol/L (3.5-5.1); VANCOMYCIN - TROUGH 5.9 ug/mL (10.0-20.0)
--- NOTE | 2018-12-06 06:00 | NUR ---
INFORMED BY FIELD CONTACT TECHNICIAN PATIENT HR HIGHEST 196 UNCONTROLLED AFIB ASSESSED PATIENT. PAGED DR. PAEZ. ORDERS GIVEN TO START AMIODARONE DRIP.
[2018-12-06 09:23] VITALS: BP 135/80
[2018-12-06 13:30] VITALS: BP 115/49
[2018-12-06 13:48] LABS: T4 THYROXIN - FREE 1.05 ng/dL (0.76-1.46); THYROID STIMULATING HORMONE 2.34 uIU/mL (0.36-3.74)
[2018-12-06 17:29] VITALS: BP 129/66
[2018-12-06 20:00] VITALS: BP 106/42
[2018-12-07] VITALS: BP 126/61
[2018-12-07 04:00] VITALS: BP 112/63
[2018-12-07 04:49] LABS: BASOPHILS 0.2 % (0-2); EOSINOPHILS 2.1 % (0-7); HEMOGLOBIN 10.1 g/dL (12-16); IMMATURE GRANULOCYTES 0.6 % (0-5); LYMPHOCYTES 8.5 % (15-50); MCH 30.2 pg (26.0-34.0); MCHC 33.7 g/dL (31.0-37.0); MCV 89.8 fL (80.0-100.0); MEAN PLATELET VOLUME 9.6 fL (7.4-10.4); MONOCYTES 8.1 % (2-11); NEUTROPHILS 80.5 % (40-80); PLATELET COUNT 203 10x3/uL (130-400); RBC 3.34 10x6/uL (4.00-5.40); RDW 14.5 % (11.5-14.5); WBC 11.7 10x3/uL (4.8-10.8)
[2018-12-07 05:03] LABS: ANION GAP 11.7 mmol/L (8-16); CALCIUM 7.3 mg/dL (8.5-10.1); CARBON DIOXIDE 22.3 mmol/L (21.0-32.0); CREATININE - SERUM 0.9 mg/dL (0.6-1.3); MAGNESIUM - SERUM 1.7 mg/dL (1.8-2.4); PHOSPHOROUS 2.5 mg/dL (2.5-4.9)
[2018-12-07 09:58] VITALS: BP 137/75
[2018-12-07 13:30] VITALS: Ht 157.5 cm; Wt 115.5 kg
[2018-12-07 13:46] VITALS: BP 149/78
[2018-12-07 17:59] VITALS: BP 173/78
--- NOTE | 2018-12-07 19:26 | NUR ---
RECIEVED SITTING UP IN CHAIR. ALERT AND ORIENTED X4. UP AD LYLY TO B/R. C/O ABD BLEEDING FROM INJECTION SITE. REENFORCED AREA. IV TO RIGHT HAND SL.. EDEMA TO BILATERAL LOWER EXTREMITIES. TELOEMETRY IN PLACE. DENIES ANY NEEDS AT THSI TIME.
[2018-12-07 20:00] VITALS: BP 148/63
--- NOTE | 2018-12-07 20:55 | NUR ---
VOICES CONCERNS OF WHY SHE IS HAVING HER BLOOD SUGAR CHECKED. STATES " I'M NOT A DIABETIC AND NEVER HAVE BEEN". DOES NOT WANT TO TAKE HUMILIN IF NEEDED. SPOKE WITH SOFIYA DEAL WITH NEW ORDER FOR HGA1C IN AM. PT AND FAMILY AWARE AND AGREEABLE. FSBS LAST CHECK WAS 150.
[2018-12-08] VITALS: BP 135/56
[2018-12-08 04:00] VITALS: BP 136/73
[2018-12-08 06:00] LABS: BASOPHILS 0.5 % (0-2); EOSINOPHILS 2.6 % (0-7); HEMATOCRIT 35.9 % (36.0-48.0); HEMOGLOBIN 11.5 g/dL (12-16); IMMATURE GRANULOCYTES 1.2 % (0-5); LYMPHOCYTES 9.6 % (15-50); MCH 29.8 pg (26.0-34.0); MEAN PLATELET VOLUME 9.4 fL (7.4-10.4); MONOCYTES 10.2 % (2-11); NEUTROPHILS 75.9 % (40-80); PLATELET COUNT 185 10x3/uL (130-400); RBC 3.86 10x6/uL (4.00-5.40); RDW 14.4 % (11.5-14.5); WBC 11.7 10x3/uL (4.8-10.8)
[2018-12-08 06:21] LABS: CALC OSMOLALITY 268 mosm/kg (275-300); CALCIUM 8.4 mg/dL (8.5-10.1); CARBON DIOXIDE 24.1 mmol/L (21.0-32.0); CHLORIDE - SERUM 101 mmol/L (98-107); CREATININE - SERUM 0.7 mg/dL (0.6-1.3); GLUCOSE 134 mg/dL (74-106); MAGNESIUM - SERUM 2.1 mg/dL (1.8-2.4); PHOSPHOROUS 2.6 mg/dL (2.5-4.9); POTASSIUM - SERUM 3.4 mmol/L (3.5-5.1); SODIUM 134 mmol/L (136-145); UREA NITROGEN 10 mg/dL (7-18); eGFR NON AFRICAN AMERICAN 88 mL/min (90-120)
--- NOTE | 2018-12-08 07:28 | NUR ---
ROUNDING DONE WITH PATIENT BEING ON HEART MONITOR SHOWING ST, HR 109. ON 2L PER NC. SITTING ON SIDE OF BED, FAMILY MEMBER LAYING ON FLOOR SLEEPING. RIGHT HAND PIV SEEN WITH ANTIBIOTICS INFUSING. ON EP, K+ IS 3.4. WILL COVER WITH ORAL SUPPLEMENTS. NEEDING RESP AND STOOL SAMPLES.
[2018-12-08 09:58] VITALS: BP 114/91
--- NOTE | 2018-12-08 12:23 | NUR ---
SITTING IN CHAIR FOR LUNCH. FAMILY MEMBER IN THE BED.
--- NOTE | 2018-12-08 13:15 | NUR ---
REDRAW OF POTASSIUM WITH RESULTS OF 4.2. NO NEED AT THIS TIME FOR ORAL SUPPLEMENTS.
--- NOTE | 2018-12-08 13:21 | NUR ---
I FLORKE WITH ANTONIETA IN PHARMACY WITH SHY. TROUGH 14.2. GIVEN OKAY TO HANG MEDICATION WITHOUT CHANGE.
[2018-12-08 14:51] VITALS: BP 127/57
--- NOTE | 2018-12-08 16:42 | NUR ---
PATIENT EDUCATION OF METFORMIN PRINTED OFF AND GIVEN TO PATIENT.
[2018-12-08 17:15] VITALS: BP 109/70
--- NOTE | 2018-12-08 17:29 | NUR ---
DR KAPOOR IN TO SEE PATIENT.
--- NOTE | 2018-12-08 19:20 | NUR ---
RECIEVED UP IN BED WITH EYES OPEN AND FAMILY AT BEDSIDE. ALERT AND ORIENTED X4. UP AD LYLY TO B/R. IV TO RIGHT HAND SL.. GENERALIZED EDEMA TO LOWER EXTREMITIES. DENIES ANY NEEDS AT THIS TIME.
[2018-12-08 20:00] VITALS: BP 133/70
[2018-12-09] VITALS: BP 140/66
[2018-12-09 04:00] VITALS: BP 124/63
[2018-12-09 04:42] LABS: BASOPHILS 0.2 % (0-2); EOSINOPHILS 2.4 % (0-7); HEMATOCRIT 31.2 % (36.0-48.0); HEMOGLOBIN 10.5 g/dL (12-16); IMMATURE GRANULOCYTES 1.8 % (0-5); LYMPHOCYTES 9.6 % (15-50); MCH 30.2 pg (26.0-34.0); MCHC 33.7 g/dL (31.0-37.0); MEAN PLATELET VOLUME 9.2 fL (7.4-10.4); MONOCYTES 6.8 % (2-11); NEUTROPHILS 79.2 % (40-80); RBC 3.48 10x6/uL (4.00-5.40); RDW 14.4 % (11.5-14.5); WBC 13.3 10x3/uL (4.8-10.8)
[2018-12-09 04:51] LABS: CALC OSMOLALITY 271 mosm/kg (275-300); CALCIUM 8.8 mg/dL (8.5-10.1); CARBON DIOXIDE 26.2 mmol/L (21.0-32.0); CHLORIDE - SERUM 101 mmol/L (98-107); CREATININE - SERUM 0.6 mg/dL (0.6-1.3); GLUCOSE 141 mg/dL (74-106); MAGNESIUM - SERUM 2.2 mg/dL (1.8-2.4); POTASSIUM - SERUM 3.8 mmol/L (3.5-5.1); SODIUM 135 mmol/L (136-145); UREA NITROGEN 12 mg/dL (7-18); eGFR NON AFRICAN AMERICAN > 90 mL/min (90-120)
[2018-12-09 04:55] LABS: MCV 89.7 fL (80.0-100.0); PLATELET COUNT 262 10x3/uL (130-400)
--- NOTE | 2018-12-09 07:54 | NUR ---
ROUNDING DONE WITH PATIENT SITTING IN THE CHAIR FOR MEALS ORDERED. FAMILY MEMBERS AT BEDSIDE. COUGH SYRUP GIVEN UPON REQUEST. ON HEART MONITOR SHOWING SR, HR 82. RIGHT HAND SALINE LOCK. ON 2L PER NC. ON EP, LAB VALUES ARE GOOD. NEEDING STOOL SAMPLE. GENERALIZED EDEMA SEEN TO LOWER LEGS. OBESE ABDOMEN.
[2018-12-09 08:47] VITALS: BP 128/62
--- NOTE | 2018-12-09 09:24 | CN ---
PATIENT NAME:SAPPHIRE LARA MEDICAL RECORD: [id number] : 48 LOCATION:D.[place] D.2118 ADMIT DATE: 12/04/18 ACCOUNT: [id number] CONSULTING PHYSICIAN: SHAMEKA CAMACHO MD REFERRING PHYSICIAN: AMERICA KAPOOR MD DATE OF CONSULTATION: 12/06/2018 HISTORY OF PRESENT ILLNESS: This is a 68-year-old female with a known history of coronary artery disease status post intervention of the right earlier this year, has a history of nonvascular leg pain, admitted with pneumonitis and this was in sinus rhythm, converted to atrial fibrillation with RVR, rate is slowing nicely on Cordarone drip. No previous history of atrial fibrillation. We are asked to see her concerning her cardiovascular status. PAST MEDICAL HISTORY: Includes: 1. History of coronary artery disease as described above. 2. Hypertension. 3. Hyperlipidemia. MEDICATIONS: Include Lasix 40 mg p.o. daily, potassium supplementation 20 mEq every day, Mirapex 1 mg q.i.d., tramadol 50 q.6 hours p.r.n., Klonopin 0.5 p.r.n., aspirin 81 daily, Plavix 75 every day, atorvastatin 10 every day, Toprol 25 every day. ALLERGIES: Naltrexone, Reglan, Contrave. SOCIAL HISTORY: Nonsmoker, nondrinker. Easily takes care of all her ADLs. REVIEW OF SYSTEMS: The patient reports easy bruising but reports no swollen glands. The patient reports no fever, no night sweats, no significant weight gain, no significant weight loss. No significant exercise tolerance. The patient reports no dry eyes, no irritation, no vision change. Patient reports no difficulty hearing and no ear pain. Patient reports no frequent nose bleeds or nose and sinus problems. Patient reports on arm pain on exertion. No shortness of breath while lying down. No history of heart murmur. Patient reports no cough, no wheezing or coughing up blood. Patient reports no abdominal pain, no vomiting. Normal appetite. No diarrhea and not vomiting blood. No nausea and no constipation. Patient reports no incontinence. No difficulty urinating. No hematuria. No increased frequency. Patient reports no muscle aches. No weakness, no arthralgias, no back pain. No swelling of the extremities. Patient reports no abnormal mole, no jaundice, no rashes. Reports no loss of consciousness. No weakness and no numbness. No seizures, dizziness, or headaches. The patient reports no depression, no sleep disturbance, feeling safe in a relationship and no alcohol abuse. Patient reports on fatigue. Reports no runny nose or sinus pressure. No itching, no hives, and no frequent sneezing. PHYSICAL EXAMINATION: GENERAL: Pleasant. No acute distress, appears stated age. VITAL SIGNS: Blood pressure 104/52, pulse currently 98 and irregular. HEENT: Normocephalic, atraumatic. NECK: No bruits are noted. HEART: Irregular, rate is controlled. There is a II/ systolic ejection murmur. LUNGS: Diminished breath sounds, left greater than right. CONSULT REPORT [id number] SAPPHIRE LARA ABDOMEN: Soft, nontender. EXTREMITIES: Pulses are well preserved, 2+ with no edema. NEUROLOGIC: Grossly intact. IMPRESSION: Atrial fibrillation, suspect secondary to underlying pneumonitis, infectious process, increased catacholmine drive, etc. currently controlled with amiodarone drip, check echocardiographic study, given temporarily related to underlying current illness. Doubt this has to be treated mcc. TRANSINT:[id number] Voice Confirmation ID: [id number] DOCUMENT ID: [id number] SHAMEKA CAMACHO MD at 0924 CC: [id number] DICTATION DATE: 12/06/18832 DIRECTOR COMMUNITY ORGANIZATION: 12/06/18 0856 ADM IN [place] [id number] [place] [address]
[2018-12-09 12:20] VITALS: BP 106/71
[2018-12-09 18:01] VITALS: BP 100/64
--- NOTE | 2018-12-09 18:07 | NUR ---
NO STOOL SAMPLE FOR THIS SHIFT.
[2018-12-09 20:00] VITALS: BP 127/51
--- NOTE | 2018-12-09 20:20 | NUR ---
RECIEVED UP IN BED WITH EYES OPEN AND HOB ELEVATED. O2@2 LITERS PER N/C. ALERT AND ORIENTED X4. UP AD LYLY TO B/R. TELEMETRY IN PLACE. LUNG SOUNDS CLEAR BILATERALLY. GENERALIZED EDEMA. DENIES ANY NEEDS AT THIS TIME.
[2018-12-10] VITALS: BP 130/59
[2018-12-10 04:00] VITALS: BP 132/69
[2018-12-10 05:54] LABS: BASOPHILS 0.3 % (0-2); EOSINOPHILS 4.4 % (0-7); HEMATOCRIT 32.3 % (36.0-48.0); HEMOGLOBIN 10.8 g/dL (12-16); IMMATURE GRANULOCYTES 1.9 % (0-5); LYMPHOCYTES 10.8 % (15-50); MCH 29.8 pg (26.0-34.0); MCHC 33.4 g/dL (31.0-37.0); MCV 89.2 fL (80.0-100.0); MEAN PLATELET VOLUME 9.3 fL (7.4-10.4); MONOCYTES 7.2 % (2-11); NEUTROPHILS 75.4 % (40-80); PLATELET COUNT 307 10x3/uL (130-400); RBC 3.62 10x6/uL (4.00-5.40); RDW 14.2 % (11.5-14.5)
[2018-12-10 06:29] LABS: CALC OSMOLALITY 274 mosm/kg (275-300); CALCIUM 8.2 mg/dL (8.5-10.1); CARBON DIOXIDE 27.5 mmol/L (21.0-32.0); CHLORIDE - SERUM 101 mmol/L (98-107); CREATININE - SERUM 0.7 mg/dL (0.6-1.3); GLUCOSE 122 mg/dL (74-106); POTASSIUM - SERUM 3.8 mmol/L (3.5-5.1); PRO BNP 834 pg/mL (0-125); SODIUM 137 mmol/L (136-145); UREA NITROGEN 13 mg/dL (7-18); eGFR NON AFRICAN AMERICAN 88 mL/min (90-120)
[2018-12-10 08:44] VITALS: BP 148/69
[2018-12-10 13:50] VITALS: BP 128/83
--- NOTE | 2018-12-10 14:50 | NUR ---
Nutrition Consult/Follow-up: Received consult for diabetic education/new diabetic. Pt continues to report decreased appetite/PO intake. Diet: Diabetic PO intake: 18% avg today Last BM: 12/10 Labs reviewed Meds reviewed Provided education/written information on diabetic diet. Pt appeared very interested in learning. Rec OP DM education as well. Rec cardiac diabetic diet. [place] food preferences within diet restrictions. RD following. Thanks for the consult!
[2018-12-10 17:54] VITALS: BP 107/62
--- NOTE | 2018-12-10 19:19 | NUR ---
RECIEVED UP IN BED WITH EYES OPEN AND TV ON. ALERT AND ORIENTED X4. UP AD LYLY TO B/R. IV TO RIGHT FA SL.. TELEMETRY IN PLACE. GENERALIZED EDEMA TO EXTREMITIES.
[2018-12-10 20:00] VITALS: BP 121/81
[2018-12-11 00:10] VITALS: BP 101/58
[2018-12-11 04:00] VITALS: BP 114/71
[2018-12-11 09:21] VITALS: BP 110/55
[2018-12-11] MEDS ORDERED: AMIODARONE HCL200 MG PO (12:31)
[2018-12-11] MEDS ORDERED: Xopenex 0.63 MG INH UPD (12:31)
[2018-12-11] MEDS ORDERED: GLUCOPHAGE500 MG PO (12:32)
[2018-12-11] MEDS ORDERED: MUCINEX600 MG PO (12:32)
[2018-12-11 13:54] VITALS: BP 146/77
--- NOTE | 2018-12-11 15:45 | NUR ---
REVIEWED DISCHARGE INSTRUCTIONS WITH PT STATES UNDERSTANDING COPY GIVEN DCD SALINE LOCK TO RFA WITH IV CATHETER INTact SITE FREE OF REDNESS OR EDEMA PT DISCHARGED HOME LEFT UNIT VIA W/C IN STABLE CONDITION WITH ALL PERSONAL ITEMS
--- NOTE | 2018-12-13 09:50 | MORECARE ---
CASE MANAGEMENT DISCHARGE SUMMARY PATIENT: SAPPHIRE LARA UNIT: [id number] ADM DATE: 12/04/18 AGE: 68 : 49 SEX: F ROOM/BED: D.6610 AUTHOR: CHENG ARREOLA PHYSICIAN: REFERRING PHYSICIAN: AMERICA KAPOOR MD DATE OF SERVICE: 12/13/18 Discharge Plan Patient Name: SAPPHIRE LARA Facility: [facility]:[place] : 1950 Planned Disposition: Home Anticipated Discharge Date: 12/11/18 Discharge Date: 12/11/2018 Expected LOS: 7 Initial Reviewer: [email or web address] Initial Review Date: 12/13/2018 Generated: 12/13/18 10:50 am Patient Name: SAPPHIRE LARA Page [phone] at 0950 All edits/amendments must be made on the electronic document DICTATION DATE: 12/13/18 0950 HONEY BLENDER: OLIVIA 12/13/18 0950 RPT#: [id number] DC DATE:12/11/18 STATUS: DIS IN [facility] [address] [place] [address] END OF REPORT
== END 2018-12-11 15:45 | disposition home or self-care (01) | DRG 871 ==
LOC: D.ER 03:01 → D.M2 06:39
PROVIDERS: Family Medicine; Internal Medicine Pulmonary Disease; ADMIT Internal Medicine Nephrology; ATTEND Internal Medicine Nephrology
DX: A41.9 Sepsis, unspecified organism (principal); J15.6 Pneumonia due to other Gram-negative bacteria; J44.1 Chronic obstructive pulmonary disease with (acute) exacerbation; J44.0 Chronic obstructive pulmonary disease with (acute) lower respiratory infection; I10 Essential (primary) hypertension; E78.5 Hyperlipidemia, unspecified; I25.10 Atherosclerotic heart disease of native coronary artery without angina pectoris; I73.9 Peripheral vascular disease, unspecified; D64.9 Anemia, unspecified; E87.6 Hypokalemia; I48.91 Unspecified atrial fibrillation; Z87.891 Personal history of nicotine dependence

== ENCOUNTER 2019-03-15 05:00 | Day surgery (SDC) | payer BC ==
[2019-03-14 10:03] LABS: HEMATOCRIT 41.5 % (36.0-48.0); HEMOGLOBIN 13.7 g/dL (12-16); MCH 30.4 pg (26.0-34.0); MEAN PLATELET VOLUME 9.6 fL (7.4-10.4); RBC 4.51 10x6/uL (4.00-5.40); RDW 13.7 % (11.5-14.5); WBC 8.7 10x3/uL (4.8-10.8)
[2019-03-14 10:08] LABS: ANION GAP 10.7 mmol/L (8-16); CALCIUM 9.3 mg/dL (8.5-10.1); CARBON DIOXIDE 28.6 mmol/L (21.0-32.0); POTASSIUM - SERUM 3.3 mmol/L (3.5-5.1)
[~2019-03-15] VITALS: Ht 157.5 cm; Wt 110.7 kg
[~2019-03-15 05:00] MED LIST changes: +AMIODARONE HCL200 MG PO; +GLUCOPHAGE500 MG PO; +K-DUR20 MEQ PO; +LIPITOR10 MG PO; +MUCINEX600 MG PO; +Xopenex 0.63 MG INH UPD
[2019-03-15 05:34] VITALS: BP 124/53; Ht 157.5 cm; Wt 110.7 kg
[2019-03-15] MEDS ORDERED: DURICEF500 MG PO (08:55)
[2019-03-15] MEDS ORDERED: HYDROCODON-ACE1 EAC7 PO (08:55)
--- NOTE | 2019-03-15 10:20 | NUR ---
0948 LEFT UPPER EXTREMITY IS IN A SLING. THICK BANDAGE COVERING LOWER ARM AND HAND. UNABLE TO REACH RADIAL ARTERY TO CHECK FOR PULSES. PT HAS MACEDONIAN ON NAILS AND UNABLE TO CHECK CAPILLARY REFILL. FINGERS ARE PINK AND WARM. PT ABLE TO WIGGLE DIGITS. STATES SHE FEELS SOME SENSATION IN FINGERS BUT THEY ARE STILL VERY NUMB.
--- NOTE | 2019-03-15 10:27 | OP ---
PATIENT NAME: SAPPHIRE LARA MEDICAL RECORD: [id number] :48 LOCATION:[facility] ADMISSION DATE: SURGEON: QUENTIN PALACIOS DO DATE OF OPERATION: 03/15/2019 PROCEDURE PERFORMED: EIP to EPL transfer. PREOPERATIVE DIAGNOSIS: EPL rupture. POSTOPERATIVE DIAGNOSIS: EPL rupture. INDICATIONS: Ms. Lara is a 68-year-old female who had a distal radius fracture approximately a year ago. She had fixation done and then approximately a month ago felt a pop in her wrist and was not able to extend her thumb. MRI was done of her hand and wrist that showed an EPL rupture at the distal radius metaphysis. I informed her we can do a tendon transfer that it should give her good function back. She was a risk for damage to nerves and vessels, bleeding, infection and need for further surgery, also re-rupture of the tendon with a transfer. She was okay with those risks and signed the consent. SURGEON: Quentin Palacios DO DESCRIPTION OF PROCEDURE: I was assisted by Danny Powell, certified surgical fws faculty assistant. She assisted with retraction and closing and this could not have been done without her. The patient was taken to the operative suite after given a block by anesthesia, laid in the supine position, given general anesthetic and LMA was placed. She was given 2 grams of Ancef preoperatively. Left upper extremity was prepped and draped in sterile fashion. A timeout was performed and everyone was agreeance with the correct side, site, patient and procedure. The left upper extremity was then exsanguinated with an Esmarch tourniquet, it was inflated to 250 mmHg, it was up for 59 minutes. The incision then began over the fourth dorsal compartment and careful dissection was made down to it, identified the EIP tendon as well as the EPL. The EPL had been ruptured just proximal to that and has pulled out through the incision. An incision was made over the second MCP joint and the EIP and EDC were recognized the EIP ulnar to that and this was cut. The EIP was then taken out through the incision at the dorsal wrist and then a small incision was made over the thumb, CMC joint and the two tendons were interwoven 4 times at 90 degrees to each other and at each pass was tied with 4-0 Ethibond in a gwknvo-ic-lbhxy fashion on 3 and 4 sides of the pass, securing the tendon into place and then each of end was sutured to the tendons creating a nice repair. The excess tendons were then cut. The tension was set with the first one having the thumb in full extension and the thumb indeed did flex with extension of the wrist and extended with flexion indicating it was good tension the IP joint of the thumb, and then the tourniquet was let down. Any bleeding was quite with a bipolar and pressure was held. Skin was then closed with 4-0 Monocryl in inverted interrupted fashion, Steri-Strips to the incision sites. The distal incision of the MCP was closed with horizontal mattress, these were covered with Steri-Strips, Adaptic, 4 x 4, cast padding. She was placed in a thumb spica splint and secured with Bayron wrap. She was taken to recovery in stable condition. Blood loss was approximately 25 mL. COMPLICATIONS: None. TRANSINT:[id number] Voice Confirmation ID: [id number] DOCUMENT ID: [id number] OPERATIVE REPORT [id number] SAPPHIRE LARA,QUENTIN Chacon DO at 1027 CC: [id number] DICTATION DATE: 03/15/19 0852 CURATORIAL ASSISTANT: 03/15/19 0929 [facility] [address] [place] [address]
--- NOTE | 2019-03-15 11:28 | NUR ---
1102 IV DC'D. CATHETER TIP INTACT. PRESSURE HELD UNTIL BLEEDING STOPPED AND BANDAID APPLIED.
== END 2019-03-15 11:19 | disposition home or self-care (01) ==
LOC: D.OPS 05:00 → D.PAN 07:00 → D.OPS 07:00 → D.PAN 10:00 → D.OPS 11:19 → D.PAN 11:40 → D.OPS 13:15
PROVIDERS: Anesthesiology; ATTEND Orthopaedic Surgery
DX: S66.919A Strain of unspecified muscle, fascia and tendon at wrist and hand level, unspecified hand, initial encounter (principal)

== ENCOUNTER → 2019-09-25 17:34 | Outpatient (CLI) | payer BC ==
[2019-03-15 05:34] VITALS: BMI 44.7
[~2019-09-25 17:34] MED LIST changes: +ASPIRIN81 MG PO; +DURICEF500 MG PO; +HYDROCODON-ACE1 EAC7 PO; +MIRAPEX1.5 MG PO; +ROBITUSSIN AC (10 M1 PO; +ZPAK PO
== END | disposition home or self-care (01) ==
LOC: D.LABREF 17:34
PROVIDERS: ATTEND Orthopaedic Surgery
DX: M25.562 Pain in left knee (principal)

== ENCOUNTER 2019-11-11 08:38 | Inpatient (IN) | payer BC ==
[~2019-11-11] VITALS: Ht 157.5 cm; Wt 112.5 kg
[2019-11-12] MEDS ORDERED: VITAMIN D5000 UNI1 PO (10:44)
[2019-11-12] MEDS ORDERED: RESTORIL7.5 MG PO (10:45)
[2019-11-12] MEDS ORDERED: HYDROCODON-ACE1 EA10 PO (10:49)
[2019-11-13 11:54] LABS: BASOPHILS 0.4 % (0-2); EOSINOPHILS 3.4 % (0-7); HEMATOCRIT 42.2 % (36.0-48.0); HEMOGLOBIN 13.7 g/dL (12-16); IMMATURE GRANULOCYTES 0.4 % (0-5); LYMPHOCYTES 19.1 % (15-50); MCH 30.2 pg (26.0-34.0); MCHC 32.5 g/dL (31.0-37.0); MEAN PLATELET VOLUME 9.7 fL (7.4-10.4); MONOCYTES 7.2 % (2-11); NEUTROPHILS 69.5 % (40-80); PLATELET COUNT 263 10x3/uL (130-400); RBC 4.54 10x6/uL (4.00-5.40); RDW 13.4 % (11.5-14.5); WBC 9.7 10x3/uL (4.8-10.8)
[2019-11-13 12:01] LABS: ANION GAP 14.6 mmol/L (8-16); CALCIUM 9.4 mg/dL (8.5-10.1); CARBON DIOXIDE 27.2 mmol/L (21.0-32.0); CREATININE - SERUM 0.9 mg/dL (0.6-1.3); POTASSIUM - SERUM 3.8 mmol/L (3.5-5.1)
[2019-11-13 12:03] LABS: BILIRUBIN NEGATIVE (NEGATIVE); GLUCOSE NEGATIVE (NEGATIVE); KETONE NEGATIVE (NEGATIVE); NITRITE NEGATIVE (NEGATIVE); UROBILINOGEN NORMAL (NORMAL)
[2019-11-13 12:07] LABS: APTT 22.4 SECONDS (22.8-39.4); INR 0.98 (0.85-1.17); PROTIME 12.9 SECONDS (11.6-15.0)
[2019-11-18] VITALS (15 sets, daily range): BP systolic 82–123; BP diastolic 39–82; BMI 46.2; BMI 45.5
--- NOTE | 2019-11-18 08:32 | NUR ---
SMALL PUS FILLED WOUND ON LEFT LOWER LEG. PT STATES IT IS A "BUG BITE". PHYSICIAN NOTIFIED. LEG SCRUBBED WITH HIBACLENS AND ALCOHOL PRIOR TO CHLORAPREP. STERILE GOWNED AND GLOVED TO PREP KNEE AND ENTIRE LEG. THROUGH TRAFFIC KEPT TO MINIMUM.
--- NOTE | 2019-11-18 11:49 | NUR ---
RECEIVED TO ROOM 1208 VIA BED FROM PACU. A/O X3. DRESSING TO LEFT KNEE DRY AND INTACT. SKIN INTACT WITHOUT REDNESS EXCEPT INCISION TO LEFT KNEE. DENIES NEEDS. DAUGHTER AT BEDSIDE.
--- NOTE | 2019-11-18 12:28 | NUR ---
BP CONTINUES TO BE LOW BOTH MANUALLY AND WITH MACHINE. PATIENT IS ASYMPTOMATIC. WILL MONITOR.
--- NOTE | 2019-11-18 12:41 | NUR ---
CALLED [facility]OLLEY AVALOS RE LOW BP. NEW ORDERS FOR BOLUS RECEIVED. WILL MONITOR.
--- NOTE | 2019-11-18 13:41 | NUR ---
BP IMPROVED WITH BOLUS. WILL CONTINUE TO MONITOR.
--- NOTE | 2019-11-18 16:30 | NUR ---
BP CONTINUES LOW. PATIENT IS ASYMPTOMATIC. WILL CONTINUE TO MONITOR.
--- NOTE | 2019-11-18 17:15 | NUR ---
SUPPER SERVED IN ROOM. FEEDS SELF WITHOUT DIFFICULTY. DAUGHTER AT BEDSIDE. NO CHANGES NOTED. DENIES NEEDS.
--- NOTE | 2019-11-18 19:09 | NUR ---
PATIENT RESTING IN BED WITH NO S/S OF DISTRESS. VSS. BED IN LOWEST POSITION AND CALL LIGHT WITHIN REACH. PATIENT DENIES NEEDS. ENCOURAGED TO CALL, WILL CONTINUE TO MONITOR.
--- NOTE | 2019-11-18 20:14 | NUR ---
ADMINISTERED MEDS PER ORDERS. DENIES NEEDS. WILL CONTINUE TO MONITOR.
[2019-11-19 05:00] VITALS: BP 89/43
[2019-11-19 06:11] LABS: HEMATOCRIT 33.8 % (36.0-48.0); HEMOGLOBIN 10.6 g/dL (12-16); MCH 29.5 pg (26.0-34.0); MCHC 31.4 g/dL (31.0-37.0); MCV 94.2 fL (80.0-100.0); RBC 3.59 10x6/uL (4.00-5.40); RDW 14.1 % (11.5-14.5); WBC 9.3 10x3/uL (4.8-10.8)
[2019-11-19 08:20] VITALS: BP 88/53
--- NOTE | 2019-11-19 08:22 | NUR ---
PT ALERT X 4. BREATH SOUNDS CLEAR BILAT. IV TO RIGHT FOREARM, PATENT, DRESSING CDI. KATE WRAP TO LEFT LEG, CDI. PT REPORTING PAIN OF 3/10, WILL CONTINUE TO MONITOR. PLEXI AND SCD IN USE. BED LOW, CALL LIGHT IN REACH. NO OTHER NEEDS AT THIS TIME.
[2019-11-19 12:39] VITALS: BP 100/51
[2019-11-19 13:34] VITALS: Ht 157.5 cm; Wt 112.5 kg
[2019-11-19 16:22] VITALS: BP 94/57
[2019-11-19 17:55] VITALS: BP 150/58
--- NOTE | 2019-11-19 19:30 | NUR ---
PT RECEIVED AT SHIFT CHANGE ALERT AND ORIENTED. DAUGHTER AT BEDSIDE. POST OP DAY 1, PT REPORTS NO CONCERNS AT THIS TIME.
[2019-11-19 20:00] VITALS: BP 121/48
[2019-11-20 02:37] VITALS: BP 119/53
[2019-11-20 05:02] VITALS: BP 128/58
[2019-11-20 05:47] LABS: HEMATOCRIT 32.4 % (36.0-48.0); HEMOGLOBIN 10.2 g/dL (12-16); MCH 29.8 pg (26.0-34.0); MCHC 31.5 g/dL (31.0-37.0); MCV 94.7 fL (80.0-100.0); MEAN PLATELET VOLUME 9.9 fL (7.4-10.4); RBC 3.42 10x6/uL (4.00-5.40); RDW 14.2 % (11.5-14.5); WBC 10.4 10x3/uL (4.8-10.8)
[2019-11-20 07:47] VITALS: BP 145/67
--- NOTE | 2019-11-20 08:25 | NUR ---
PATIENT ALERT AND ORIENTED, RESTING QUIETLY IN BED WITH EYES OPEN. WATCHING TV. RESPIRATIONS EVEN NON LABORED. NO SIGNS OF DISTRESS NOTED. IV LEFT HAND AT 75ML/HR. PATENT. UP WITH X1 ASSIST. DRESSING ON LEFT KNEE. CLEAN DRY INTACT. SCDS ON. DENIES FURTHER NEEDS. SIDE RAILS UP X4. CALL LIGHT IN REACH. WILL CONTINUE TO MONITOR FOR SAFETY.
[2019-11-20 13:19] VITALS: BP 128/56
--- NOTE | 2019-11-20 16:23 | NUR ---
I have reviewed this patient and I concur with the Shift Assessment completed by the Licensed Practical Nurse today this shift.
--- NOTE | 2019-11-20 18:57 | NUR ---
PATIENT ALERT AND ORIENTED. FAMILY AT BEDSIDE. LAYING QUIETLY IN BED WITH EYES OPEN. RESPIRATIONS EVEN NON LABORED. NO SIGNS OF DISTRESS NOTED. DENIES FURTHER NEEDS. SIDE RAILS UP X4. CALL LIGHT IN REACH. WILL CONTINUE TO MONITOR FOR SAFETY.
[2019-11-20 20:00] VITALS: BP 134/64
--- NOTE | 2019-11-20 20:00 | NUR ---
ALERT RESTING IN BED, DENIES PAIN OR NEEDS AT THSI TIME, DAUGHTER AT BED SIDE, INSTRUCTED TO CALL FOR ASSISTANCE BEFORE GETTING UP TO BATHROOM , CALL LIGHT IN REACH
[2019-11-21 04:30] VITALS: BP 138/60
[2019-11-21 07:25] VITALS: BP 140/64
--- NOTE | 2019-11-21 08:00 | NUR ---
AWAKE AND ALERT. ORIENTED X3. NO C/O AT THIS TIME. LUNGS ARE CLEAR BILATERALLY, REPORTED USES IS INSTRUCTED. SKIN IS INTACT WITHOUT REDNESS EXCEPT INCISION TO LEFT KNEE WHICH HAS A DRY INTACT DRESSING IN PLACE. SL TO LEFT HAND IS PATENT WITHOUT REDNESS AT INSERTION SITE. DENIES NEEDS. ANXIOUS TO GO HOME TODAY.
[2019-11-21] MEDS ORDERED: ELIQUIS2.5 MG PO (08:41)
[2019-11-21] MEDS ORDERED: ATIVAN0.5 MG PO (08:41)
[2019-11-21] MEDS ORDERED: PERCOCET 10-321 EAC1 PO (08:41)
--- NOTE | 2019-11-21 08:53 | NUR ---
REQUESTED AND GIVEN ONE PERCOCET PO FOR C/O PAIN LEVEL 3 PRIOR TO THERAPY. WILL MONITOR.
[2019-11-21 11:45] VITALS: BP 125/49
--- NOTE | 2019-11-21 12:39 | MORECARE ---
CASE MANAGEMENT DISCHARGE SUMMARY PATIENT: SAPPHIRE LARA UNIT: [id number] ADM DATE: 11/18/19 AGE: 69 : [birth year] SEX: F ROOM/BED: D.1208 AUTHOR: CHENG ARREOLA PHYSICIAN: REFERRING PHYSICIAN: KYLE ROWE MD DATE OF SERVICE: 11/21/19 Discharge Plan Patient Name: SAPPHIRE LARA Facility: [facility]:[place] : 1950 Planned Disposition: Anticipated Discharge Date: Discharge Date: Expected LOS: Initial Reviewer: [email or web address] Initial Review Date: 11/18/2019 Generated: 11/21/19 1:38 pm Comments DCP- Discharge Planning Updated by [id number]: Bre Soto on 11/21/19 11:[address] Patient Name: SAPPHIRE LARA Admission Status: Elective Accout number: [id number] Admission Date: 11-18-2019 : 1950 Admission Diagnosis:PAIN DUE TO INTERNAL ORTHOPEDIC PROSTH DEV/GRFT, INIT Attending: KYLE ROWE Current LOS: 3 Anticipated DC Date: Planned Disposition: Primary Insurance: [employer] Discharge Planning Comments: CM met with patient at bedside after explaining CM role and obtaining verbal consent. CM discussed availability / needs of home health, REHAB and medical equipment. STATES HAS CPM MACHINE AND WALKER ALREADY. NATHANIEL SIGNED FOR [facility]. [facility] WILL START Monday FOR DRESSING CHANGES AND PT. CM TO FOLLOW AND ASSIST NEEDED. PATIENT PLANS TO DC TO HOME TODAY. Journeyman Patternmaker: Bre Soto External Providers [facility] Next Contact Date: Service Request Date: Service Type: Resolution: Reviewer: Comments: Patient Name: SAPPHIRE LARA Page [phone] at 1239 All edits/amendments must be made on the electronic document DICTATION DATE: 11/21/19 1238 SUPERVISOR STITCHING DEPARTMENT: OLIVIA 11/21/19 1238 RPT#: [id number] DC DATE: STATUS: ADM IN [facility] [address] [place] [address] END OF REPORT
--- NOTE | 2019-11-21 13:04 | NUR ---
DISCHARGED TO HOME AMBULATORY WITH DAUGHTER. DISCHARGE INSTRUCTIONS GIVEN BOTH VERBALLY AND WRITTEN. ALL QUESTIONS ANSWERED. PATIENT AND DAUGHTER ABLE TO VERBALIZE DISCHARGE INSTRUCTIONS. SL TO LEFT HAND D/C WITH CATHETER INTACT. 2 AQUACELL DRESSINGS SENT WITH PATIENT. ALL BELONGINGS WITH PATIENT.
--- NOTE | 2019-11-22 09:33 | OP ---
PATIENT NAME: RADHA LARA MEDICAL RECORD: [id number] :48 LOCATION:D.M3 D.1208 ADMISSION DATE:11/18/19 SURGEON: KYLE ROWE MD DATE OF OPERATION: 11/18/2019 PREOPERATIVE DIAGNOSIS: Painful left total knee arthroplasty. POSTOPERATIVE DIAGNOSIS: Painful left total knee arthroplasty. PROCEDURE: Revision total knee arthroplasty. SURGEON: Kyle Rowe MD FLAT SHEET MAKER: JHON Barth. INTRAOPERATIVE COMPLICATIONS: None. SUMMARY OF PATHOLOGIC FINDINGS: Indeed, the patient's medial tibial plateau had subsided as was seen on prior radiographs. IMPLANTS USED: Bandwidth Triathlon total stabilizing system. Please see the chart for details of sizes and augments. INDICATIONS: Ms. Radha Lara is a 68-year-old female who had total knee arthroplasty done in 2014. Unfortunately, she had gained about 80 pounds and over the course of the last 8 months began having substantial problems with her knees. She came in and had an x-ray that showed the tibial plateau had subsided into the tibia, although it was cemented. It had shifted to the point of varus deformity and was painful. OPERATIVE SUMMARY IN DETAIL: After obtaining the appropriate preoperative orthopedic surgery consent as well as anesthetic consultation, evaluation, and clearance, the patient was brought to the operating room and placed on the operating table in the supine position. After adequate general laryngeal mask airway was administered, a tourniquet was placed about the proximal aspect of the patient's left lower extremity. The left lower extremity was then prepped and draped in a routine sterile fashion. The leg was elevated, exsanguinated, and the tourniquet was inflated to 350 mmHg. Midline incision was taken over the previous incision, taken down to the level of the patella for paramedian arthrotomy. Patella was subluxed laterally and it was in good overall condition. Serial and sequential removal of both the distal femur and proximal tibia were done. The proximal tibia had subsided approximately 8 mm into the medial aspect of the tibia, obviating the need for a substantial cleanup cut. The appropriate preparations of the distal femur were followed by placing the trials. The patient did require distal, medial and distal medial posterior augmentation. The trial was put into place. Attention was then turned to the tibia. All excess cement was removed to avoid any erroneous reaming. Serial and sequential reaming was done for the appropriate size 100 mm stem and she required a tibial augment half blocks both on each side. These trials were put together, placed in the knee, taken through range of motion. Multiple different trial inserts were utilized and it was felt that the 19 mm was the most appropriate. At that, she was perfectly tensioned medially; however, she was still somewhat lax laterally. Given the amount of varus that she had fallen into, I felt like plication of the lateral collateral ligament was warranted. This was done with #2 Ethibond while the knee was held in the straightened OPERATIVE REPORT [id number] RADHA LARA appropriate position. After several #2-0 Ethibonds were put into place, she had a substantial balance both sides, both in flexion and extension. At this point, the trials were taken out and the knee was copiously irrigated. Final components in keeping with the trials were assembled on the back table and then the final implants were cemented into place. All excess cement was removed. After the cement was allowed to harden, the knee was taken through a range of motion with slight lateral tracking. A gentle lateral release was performed, increasing the tracking to perfect. The knee was then filled with a gram of vancomycin and a gram of tobramycin. The paramedian arthrotomy was then closed by JHON Barth, including #2-0 Ethibonds for the capsule, #1 Vicryl, 2-0 Vicryl, and skin christian for final closure. Sterile dressings were applied. Tourniquet was deflated. The patient was awakened and taken to recovery room in stable condition. All final needle and sponge counts were correct. NTS:[id number] Voice Confirmation ID: [id number] DOCUMENT ID: [id number] SOLEDAD RICE, KYLE VELÁSQUEZ at 0933 CC: [id number] DICTATION DATE: 11/21/19 1343 RESEARCH GREENHOUSE SUPERVISOR: 11/21/19 1823 DIS IN 11/21/19 [place] [id number] [place] [id number]
== END 2019-11-21 13:06 | disposition home or self-care (01) | DRG 468 ==
LOC: D.SDCHOLD 11-13 10:00 → D.M3 11-18 05:31 → D.SDCHOLD 11-18 07:30 → D.M3 11-18 10:11
PROVIDERS: ADMIT Orthopaedic Surgery; ATTEND Orthopaedic Surgery
PROC: 0SRD0JZ Replacement of Left Knee Joint with Synthetic Substitute, Open Approach (ICD-10-PCS; 2019-11-18)
PROC: 0SPD0JZ Removal of Synthetic Substitute from Left Knee Joint, Open Approach (ICD-10-PCS; principal; 2019-11-18 07:30)
DX: T84.84XA Pain due to internal orthopedic prosthetic devices, implants and grafts, initial encounter (principal); Y83.9 Surgical procedure, unspecified as the cause of abnormal reaction of the patient, or of later complication, without mention of misadventure at the time of the procedure; I25.10 Atherosclerotic heart disease of native coronary artery without angina pectoris; E11.9 Type 2 diabetes mellitus without complications

== ENCOUNTER → 2020-06-18 16:46 | Outpatient (CLI) | payer BC ==
[2019-11-19 13:34] VITALS: BMI 45.4
[~2020-06-18 16:46] MED LIST changes: +ATIVAN0.5 MG PO; +HYDROCODON-ACE1 EA10 PO; +PERCOCET 10-321 EAC1 PO; +RESTORIL7.5 MG PO; +VITAMIN D5000 UNI1 PO
[2020-06-18 17:24] LABS: HEMATOCRIT 39.6 % (36.0-48.0); HEMOGLOBIN 12.8 g/dL (12-16); MCH 29.4 pg (26.0-34.0); MCHC 32.3 g/dL (31.0-37.0); MCV 90.8 fL (80.0-100.0); NEUTROPHILS 70.5 % (40-80); RBC 4.36 10x6/uL (4.00-5.40); RDW 13.7 % (11.5-14.5); WBC 8.6 10x3/uL (4.8-10.8)
[2020-06-18 17:30] LABS: PLATELET COUNT 301 10x3/uL (130-400)
[2020-06-18 18:38] LABS: ERYTHROCYTE SEDIMENTATION RATE 91 mm/hr (0-30)
== END | disposition home or self-care (01) ==
LOC: D.LABREF 16:46
PROVIDERS: ATTEND Clinical Nurse Specialist Family Health
DX: M25.569 Pain in unspecified knee (principal)

== ENCOUNTER → 2020-07-06 13:58 | Outpatient (CLI) | payer MEDICARE, BC ==
[2019-11-19 13:34] VITALS: BMI 45.4
[2020-07-06 14:52] LABS: BASOPHILS 0.3 % (0-2); EOSINOPHILS 6.1 % (0-7); HEMATOCRIT 35.1 % (36.0-48.0); IMMATURE GRANULOCYTES 0.4 % (0-5); LYMPHOCYTE ABS# 1.64 10x3/uL (1.18-3.74); LYMPHOCYTES 22.7 % (15-50); MCH 23.9 pg (26.0-34.0); MCHC 25.6 g/dL (31.0-37.0); MCV 93.1 fL (80.0-100.0); MEAN PLATELET VOLUME 9.8 fL (7.4-10.4); MONOCYTES 7.1 % (2-11); NEUTROPHIL ABS# 4.59 10x3/uL (1.56-6.13); NEUTROPHILS 63.4 % (40-80); RBC 3.77 10x6/uL (4.00-5.40); WBC 7.2 10x3/uL (4.8-10.8)
[2020-07-06 14:53] LABS: PLATELET COUNT 203 10x3/uL (130-400)
== END | disposition home or self-care (01) ==
LOC: D.LABREF 13:58
PROVIDERS: ATTEND Clinical Nurse Specialist Family Health
DX: M25.462 Effusion, left knee (principal)

== ENCOUNTER 2020-08-12 04:50 | Day surgery (SDC) | payer MEDICARE, BC ==
[2020-08-10 13:23] LABS: BASOPHILS 0.6 % (0-2); EOSINOPHILS 4.7 % (0-7); HEMATOCRIT 42.8 % (36.0-48.0); HEMOGLOBIN 13.7 g/dL (12-16); IMMATURE GRANULOCYTES 0.4 % (0-5); LYMPHOCYTE ABS# 2.14 10x3/uL (1.18-3.74); LYMPHOCYTES 25.2 % (15-50); MCH 29.3 pg (26.0-34.0); MCV 91.6 fL (80.0-100.0); MEAN PLATELET VOLUME 10.1 fL (7.4-10.4); MONOCYTES 7.5 % (2-11); NEUTROPHIL ABS# 5.24 10x3/uL (1.56-6.13); NEUTROPHILS 61.6 % (40-80); RBC 4.67 10x6/uL (4.00-5.40); RDW 13.9 % (11.5-14.5); WBC 8.5 10x3/uL (4.8-10.8)
[2020-08-10 13:25] LABS: PLATELET COUNT 327 10x3/uL (130-400)
[2020-08-10 13:26] LABS: ANION GAP 12.5 mmol/L (8-16); CALCIUM 9.2 mg/dL (8.5-10.1); CREATININE - SERUM 1.1 mg/dL (0.6-1.3); POTASSIUM - SERUM 3.5 mmol/L (3.5-5.1)
[~2020-08-12] VITALS: Ht 157.5 cm; Wt 109.8 kg
[~2020-08-12 04:50] MED LIST changes: +BETAPACE 80 MG80 MG PO
[2020-08-12 05:29] VITALS: Ht 157.5 cm; Wt 109.8 kg
[2020-08-12] MEDS ORDERED: HYDROCODON-ACE1 EAC7 PO (08:56)
--- NOTE | 2020-08-12 11:09 | NUR ---
1105 CHECKED ON PT. PT. IS STILL EATING PUDDING, STATES WILL CALL WHEN READY TO LEAVE.
--- NOTE | 2020-08-12 11:44 | NUR ---
1130 PT IS DRESSED AND STATES SHE IS READY NOW TO GO, RELEASED IN WC WITH HER DAUGHTER CREATIVE SERVICES INTERN. HAS RX AND DC INSTS. VOICED UNDERSTANDING.
--- NOTE | 2020-08-13 08:09 | OP ---
PATIENT NAME: SAPPHIRE LARA MEDICAL RECORD: [id number] :48 LOCATION:[facility] ADMISSION DATE: SURGEON: QUENTIN PALACIOS DO DATE OF OPERATION: 08/12/2020 PROCEDURE PERFORMED: Tendon transfer of the left hand, it is a flexor pollicis longus rupture. I transferred the flexor digitorum superficialis or sublime superficialis of the ring finger to the flexor pollicis longus. I then did a flexor digitorum superficialis repair of the index finger and removal of hardware of the left distal radius. Flexor tendon sheath injection of the trigger finger of right ring finger. PREOPERATIVE DIAGNOSES: Flexor pollicis longus rupture, prominent hardware in the left distal radius. POSTOPERATIVE DIAGNOSES: Flexor pollicis longus rupture, prominent hardware in the left distal radius, with partial tearing of the flexor digitorum superficialis to the index finger. INDICATIONS: Ms. Lara is a 69-year-old female who had a distal radius fracture done with 2 screws. The posterior to anterior screw was left slightly prominent and it had gone through the EPL tendon. Her EPL tendon had ruptured, I had done an EIP to EPL transfer, I think about a year ago. About 6 months ago, she was unable to flex her thumb. I told her we needed to really get an MRI to see what was ruptured, but she did not want to do that due to COVID. She came back and said she was tired of not being able to flex her thumb. I told her that I could transfer tendon and help her with that, but she would be at risk for infection, bleeding, re-rupture, continued pain, I will have to remove the hardware and loss of motion of the thumb bleeding, damage to the median nerve and need for further surgery and she signed consent. SURGEON: Quentin Palacios DO DESCRIPTION OF PROCEDURE: The patient was taken to the operative suite, laid in the supine position, given general anesthetic and LMA was placed. She was given 2 grams of Ancef preoperatively. The left upper extremity was then prepped and draped in sterile fashion. Timeout was performed, everyone was in agreeance with the correct side, site, patient and procedure. I then began by gettina an x-ray and trying to get the screw out of the radial styloid; however, it was buried and was not bothering any tendon, so I went right over the EPL or Stacy's tubercle and removed that screw. I then opened up the volar wrist, brought it up right along the flexor carpi radialis tendon and made careful dissection down to where the flexor tendons conjoined there at the volar wrist, just proximal to the carpal tunnel. I identified the flexor digitorum superficialis to the index, it was partially torn. I then could not find the flexor pollicis longus. I then made an incision over the A1 france of the thumb, dissected out the tendon and then tagged it, and I ran a freer through the tendon tunnel and sheath came out in the volar wrist and passed it through there to its proper location. I then harvested the flexor digitorum superficialis of the ring finger at the distal hand crease opening the A1 france and transecting it there, leaving the flexor digitorum profundus and ensuring that she could still flex her ring finger she could after pulling on. I then pulled the flexor digitorum superficialis to the ring finger through the hand into the open spot of the volar wrist and then performed a tendon transfer. I made a guido incision with an 11-blade. A mosquito hemostat brought through the OPERATIVE REPORT [id number] SAPPHIRE LARA tendon and weaved it back through, I tied that in aodemw-og-idgfb in 3 different locations along where the tendon was brought through the FPL after having appropriate tension on it a slight flexion of the thumb and then made another guido incision and pulled it back through the FPL again, weaving it through and again tied for 3 different ebhcjc-jv-lljmdd around the site and then pulled the flexor digitorum superficialis to the ring back through itself and tied it in 3 different spots as well as wpjlsx-fi-dltjs using 4-0 Ethibond. I then saw she had good tendon excursion and good flexion after pulling on the repair site. I then identified the flexor digitorum superficialis to the index and then did a modified Mcclain repair to the flexor digitorum superficialis to the index and tied it off. We then let the tourniquet down. Any bleeding was coagulated with a bipolar. I then closed all the sites with 4-0 nylon. The ring donor site and at the A1 france with horizontal mattress and few simple interrupteds on the wrists, I did a running stitch with 4-0 nylon. She was then dressed with Adaptic, 4 x 4s, cast padding, and placed in a thumb spica splint with the wrist slightly flexed about 30 degrees. Thus secured with an Bayron wrap. She was awakened and taken to recovery in stable condition. BLOOD LOSS: Minimal. The tourniquet was used during the procedure and left upper extremity was exsanguinated with an Esmarch prior to starting it was up for approximately 80 minutes. Following that, I then injected the right hand ring finger flexor tendon sheath with 3 mg of betamethasone and 1 mL of lidocaine. The patient was consented for this. TRANSINT:[id number] Voice Confirmation ID: [id number] DOCUMENT ID: [id number] QUENTIN PALACIOS DO at 0809 CC: [id number] DICTATION DATE: 08/12/20 0906 OUTREACH COUNSELOR: 08/12/20 1338 [facility] 08/12/20 [place] [id number] [place] [address]
== END 2020-08-12 11:30 | disposition home or self-care (01) ==
LOC: D.OPS 04:50
PROVIDERS: Anesthesiology; ATTEND Orthopaedic Surgery
DX: S56.09 Other injury of flexor muscle, fascia and tendon of thumb at forearm level (principal); X58.XXXA Exposure to other specified factors, initial encounter; M79.645 Pain in left finger(s); M65.341 Trigger finger, right ring finger